=== PATIENT | female | born 1965 | race Caucasian/White ===

== ENCOUNTER 2020-06-07 20:54 | Inpatient (IN) | payer OTHER, SELFPAY ==
[2020-06-07 20:56] VITALS: BP 118/78; BP 98/53; PULSE 95; RESP 24; TEMP 38; O2SAT 93; O2SAT 95; BMI 43.9
--- NOTE | 2020-06-07 21:07 | PC.NURSE ---
WALKING O2 SAT. DOWN TO 86% TACHY TO 130S.
--- NOTE | 2020-06-07 21:08 | ECG_ITS ---
Test Reason : DYSPNEA Blood Pressure : / mmHG Vent. Rate : 081 BPM Atrial Rate : 081 BPM P-R Int : 122 ms QRS Dur : 088 ms QT Int : 354 ms P-R-T Axes : 039 029 047 degrees QTc Int : 411 ms Normal sinus rhythm Normal ECG No previous ECGs available Referred By: Generic ED Physician Electronically Signed By:YARA HERNANDEZ MD
--- NOTE | 2020-06-07 21:08 | XR_ITS ---
EXAMINATION: XR CHEST CLINICAL INFORMATION: Dyspnea. COMPARISON: None TECHNIQUE: Frontal view of the chest was obtained. FINDINGS: Lungs are well-expanded with mild increased bilateral parahilar interstitial markings but no confluent infiltrate. There is no pleural effusion or thickening. Heart size and pulmonary vascularity is normal. No gross bony abnormality seen. XR/XR chest 1V IMPRESSION: No acute process seen. Mild increased bilateral parahilar markings without confluent infiltrate.
[2020-06-07] MEDS: 0.9 % Sodium Chloride 1,000 ML 999 ML IV (21:44)
--- NOTE | 2020-06-07 21:46 | ED.SOB ---
HPI - SOB/Dyspnea General Chief Complaint: Dyspnea Stated Complaint: SOB,FEELS FEVERISH,COVID + Time Seen by Provider: 06/07/20 21:15 Source: patient Mode of arrival: EMS History of Present Illness HPI Narrative: This is a 54-year-old female with history of thyroid disease, asthma who presents after worsening respiratory symptoms and noted to have COVID-19 positive testing on 05/31/2020. Patient states she has been having chills, mild nausea, multiple episodes of nonbloody diarrhea, but denies any urinary pain/burning/frequency or otherwise abdominal discomfort. Patient states that her breathing becomes more painful on deep inspiration but denies chest pain/palpitations, or sore throat. In addition she is having headaches and body aches. Related Data Home Medications Medication Instructions Recorded Confirmed acetaminophen 500 mg PO Q6H PRN 06/07/20 06/07/20 albuterol sulfate 1 - 2 puff PO Q4-6H PRN 06/07/20 06/07/20 fluoxetine 20 mg PO DAILY 06/07/20 06/07/20 levothyroxine 50 mcg PO DAILY 06/07/20 06/07/20 omeprazole 20 mg PO DAILY 06/07/20 06/07/20 prednisone 20 mg PO DAILY 06/07/20 06/07/20 topiramate 50 mg PO BID 06/07/20 06/07/20 Allergies Allergy/AdvReac Type Severity Reaction Status Date / Time Penicillins [PENICILLINS] Allergy Unknown HIVES Verified 06/07/20 20:55 oseltamivir [From Tamiflu] Allergy Hives Verified 06/07/20 20:55 Review of Systems Review of Systems: Pertinent positives and negatives as stated in HPI 10 point review of systems is otherwise negative. PENDING SALE TO [facility] Past Medical History Source: nursing notes reviewed Medical History Anxiety Depression GERD (gastroesophageal reflux disease) Hypothyroid Migraine Social History Social History Advance Directives: No Advance Directives Information Provided: Yes Physical Exam Vital Signs: Vital Signs: Last Vital Signs Temp 100.4 F 06/07/20 20:56 Pulse 95 06/07/20 20:56 Resp 24 H 06/07/20 20:56 BP 98/53 L 06/07/20 20:56 Pulse Ox 95 06/07/20 20:56 Body Mass Index 43.9 VITAL SIGNS: Reviewed. GENERAL: Well developed, well nourished, in no acute distress. HEAD: Normocephalic/atraumatic, EYES: PERRLA, EOMI EARS: Ext canals without abnormality, TMs non-bulging and non-erythematous NOSE: Nares patent bilateral OROPHARYNX: no oral lesions noted, posterior pharynx clear NECK: Supple, no adenopathy LUNGS: Normal breath sounds, tachypnea. No adventitious sounds or accessory muscle use. SpO2<95> when patient was ambulated oxygenation dropped to less than 90%. CARDIOVASCULAR: Regular rate and rhythm without noted murmurs, no JVD or lower extremity edema. ABDOMEN: Obese, Soft, non-tender, non-distended with bowel sounds. SKIN: Inspection of the skin reveals no rashes NEUROLOGIC: Alert and oriented x 4. Strength and sensation to light touch were grossly intact x 4. Course Course Course Narrative: This is a 54-year-old female with history and clinical presentation most consistent with acute respiratory failure with hypoxia suspected secondary to COVID-19. Therefore, this is a SIRS response but will initially obtain lactic acid as well as blood cultures., will administer sepsis level IV fluids as patient likely has a component of dehydration. Doubt CHF or asthma exacerbation at this time. On review of all investigations lab work and imaging most consistent with acute respiratory failure with hypoxia requiring oxygen supplementation and SIRS response secondary to viral infection (COVID-19). This case was discussed with the inpatient hospitalist who is agreeable for admission. MDM - SOB/Dyspnea Lab Data Result diagrams: 06/07/20 21:33 06/07/20 21:33 Labs: Lab Results 06/07/20 06/07/20 06/07/20 Range/Units 21:33 21:33 21:33 WBC 10.9 H (4.8-10.8) X10*3/uL RBC 5.20 (4.20-5.50) X10*6/uL Hgb 13.9 (12.0-16.0) g/dl Hct 42.5 (37-47) % MCV 81.7 (80-98) fL MCH 26.7 L (27.0-33.0) pg MCHC 32.7 (31.0-35.0) g/dl RDW 14.0 (11.0-16.0) % Plt Count 327 (160-400) X10*3/uL MPV 11.2 (9.4-12.3) fL Immature Gran % (Auto) 0.4 (0.0-0.4) % Neut % (Auto) 66.5 (45-73) % Lymph % (Auto) 22.1 (20-40) % [place] % (Auto) 10.5 (2-11) % Eos % (Auto) 0.3 (0-4) % Baso % (Auto) 0.2 (0-2) % Lymph # (Auto) 2.4 (1.2-4.9) X10*3/uL [place] # (Auto) 1.1 (0.1-1.2) X10*3/uL Eos # (Auto) 0.0 (0.0-0.4) X10*3/uL Baso # (Auto) 0.0 (0.0-0.2) X10*3/uL Abs Immat Gran (auto) 0.04 H (0.00-0.03) X10*3/uL Absolute Neuts (auto) 7.2 (2.0-8.3) X10*3/uL Absolute Nucleated RBC 0.000 (0.0-0.012) X10*3/uL Nucleated RBC % (auto) 0.0 (0.0-0.2) /100WBC Hold Blue Top SEE NOTE Sodium (135-145) mmol/L Potassium (3.3-5.1) mmol/l Chloride (96-108) mmol/L Carbon Dioxide (22-29) mmol/L Anion Gap (12-20) BUN (9-16) mg/dL Creatinine (0.5-1.4) mg/dL Estim Creat Clear Calc Estimated GFR Random Glucose (60-115) mg/dL Lactic Acid 1.7 (0.5-2.0) mmol/L Calcium (8.4-10.2) mg/dL Lactate Dehydrogenase (122-220) U/L Troponin I High Sens (<3.5-17.0) ng/L C-Reactive Protein (< or = 0.50) mg/dL B-Natriuretic Peptide (<100) pg/mL Procalcitonin ng/mL TSH (0.32-4.0) uIU/mL 06/07/20 06/07/20 06/07/20 Range/Units 21:33 21:33 21:33 WBC (4.8-10.8) X10*3/uL RBC (4.20-5.50) X10*6/uL Hgb (12.0-16.0) g/dl Hct (37-47) % MCV (80-98) fL MCH (27.0-33.0) pg MCHC (31.0-35.0) g/dl RDW (11.0-16.0) % Plt Count (160-400) X10*3/uL MPV (9.4-12.3) fL Immature Gran % (Auto) (0.0-0.4) % Neut % (Auto) (45-73) % Lymph % (Auto) (20-40) % [place] % (Auto) (2-11) % Eos % (Auto) (0-4) % Baso % (Auto) (0-2) % Lymph # (Auto) (1.2-4.9) X10*3/uL [place] # (Auto) (0.1-1.2) X10*3/uL Eos # (Auto) (0.0-0.4) X10*3/uL Baso # (Auto) (0.0-0.2) X10*3/uL Abs Immat Gran (auto) (0.00-0.03) X10*3/uL Absolute Neuts (auto) (2.0-8.3) X10*3/uL Absolute Nucleated RBC (0.0-0.012) X10*3/uL Nucleated RBC % (auto) (0.0-0.2) /100WBC Hold Blue Top Sodium 139 (135-145) mmol/L Potassium 3.5 (3.3-5.1) mmol/l Chloride 105 (96-108) mmol/L Carbon Dioxide 21 L (22-29) mmol/L Anion Gap 17 (12-20) BUN 15 (9-16) mg/dL Creatinine 1.10 (0.5-1.4) mg/dL Estim Creat Clear Calc 68.7 Estimated GFR 52 Random Glucose 114 (60-115) mg/dL Lactic Acid (0.5-2.0) mmol/L Calcium 8.1 L (8.4-10.2) mg/dL Lactate Dehydrogenase 268 H (122-220) U/L Troponin I High Sens 3.9 (<3.5-17.0) ng/L C-Reactive Protein 11.22 H (< or = 0.50) mg/dL B-Natriuretic Peptide 11 (<100) pg/mL Procalcitonin 0.05 ng/mL TSH 2.83 (0.32-4.0) uIU/mL Discharge Plan Discharge Clinical Impression: Acute hypoxemic respiratory failure due to COVID-19, Hypoxia, Dehydration Patient Disposition: Admitted As Inpatient
[2020-06-07 22:04] LABS: MANUAL DIFF FLAG NO
[2020-06-07 22:06] LABS: Basophils Percent Auto 0.2 % (0-2); Eosinophils Percent Auto 0.3 % (0-4); Hematocrit 42.5 % (37-47); Hemoglobin 13.9 g/dl (12.0-16.0); Imm Gran Abs Auto 0.04 X10*3/uL (0.00-0.03); Imm Gran Pct Auto 0.4 % (0.0-0.4); Lymphocytes Absolute Auto 2.4 X10*3/uL (1.2-4.9); Lymphocytes Percent Auto 22.1 % (20-40); Mean Corpuscular HGB Conc 32.7 g/dl (31.0-35.0); Mean Corpuscular Hemoglobin 26.7 pg (27.0-33.0); Mean Corpuscular Volume 81.7 fL (80-98); Mean Platelet Volume 11.2 fL (9.4-12.3); Monocytes Absolute Auto 1.1 X10*3/uL (0.1-1.2); Monocytes Percent Auto 10.5 % (2-11); Neutrophils Absolute Auto 7.2 X10*3/uL (2.0-8.3); Neutrophils Percent Auto 66.5 % (45-73); Platelet Count 327 X10*3/uL (160-400); White Blood Count 10.9 X10*3/uL (4.8-10.8)
[2020-06-07 22:32] LABS: Lactic Acid 1.7 mmol/L (0.5-2.0)
[2020-06-07 22:35] LABS: Anion Gap 17 (12-20); Blood Urea Nitrogen 15 mg/dL (9-16); Calcium 8.1 mg/dL (8.4-10.2); Carbon Dioxide 21 mmol/L (22-29); Chloride 105 mmol/L (96-108); Creatinine Clr Calc Pharmacy 68.7; Estimated Glomerular Filt Rate 52; Glucose Random 114 mg/dL (60-115); Potassium 3.5 mmol/l (3.3-5.1); Sodium 139 mmol/L (135-145)
[2020-06-07 22:43] LABS: B Type Natriuretic Peptide 11 pg/mL (<100); Troponin-I High Sensitivity 3.9 ng/L (<3.5-17.0)
[2020-06-07 23:14] LABS: C Reactive Protein 11.22 mg/dL (< or = 0.50); Lactate Dehydrogenase 268 U/L (122-220)
[2020-06-07 23:35] LABS: Thyroid Stimulating Hormone 2.83 uIU/mL (0.32-4.0)
[2020-06-07 23:38] LABS: Procalcitonin 0.05 ng/mL
[2020-06-08] VITALS (9 sets, daily range): BP systolic 88–140; BP diastolic 43–70; PULSE 56–70; RESP 12–23; TEMP 36.8–37.5; O2SAT 93–97
--- NOTE | 2020-06-08 01:31 | PC.NURSE ---
PATIENT UP TO BATHROOM TO PROVIDE URINE SPECIMEN.
[2020-06-08 02:19] LABS: Influenza A PCR NEGATIVE (Negative); Influenza B PCR NEGATIVE (Negative); Resp Syncy Virus RNA Qual PCR NEGATIVE (Negative)
[2020-06-08 02:39] LABS: SARS COV2 PCR INHOUSE POSITIVE (Negative)
--- NOTE | 2020-06-08 03:37 | P.HPHOSP_ITS ---
History of Present Illness Date of Service: 06/08/20 Chief Complaint: Dyspnea, fatigue, sore throat 54 year old woman with history of asthma, hypopthyroidism presented with ongoing symptoms related to COVID. She tested positive in 05/31 after having household member who also had positive test. Therafter she describes intermittent fevers/chills, fatigue, sore throat, cough, and burning chest pain. She also has had diarrhea and nausea. Though she has asthma, it is mild/intermittent as she has not had any recent hospitalizations for exacerbations.. Review of Systems Constitutional: Constitutional: Reports chills and Reports lethargy Eyes: Comments: No vision changes ENT: Comments: Some sore throat. Cardiovascular: Comments: Chest discomfort with coughing. Respiratory: Comments: Dyspnea Gastrointestinal: Comments: Diarrhea, some abd discomfort Musculoskeletal: Musculoskeletal: Reports no additional musculoskeletal complaints Integumentary/Breasts: Comments: No rashes Neurologic: Comments: No confusion Psychiatric: Comments: No anxiety or agitation Hematologic/Lymphatic: Comments: No rashes PMFSH Medical History Anxiety Depression GERD (gastroesophageal reflux disease) Hypothyroid Migraine Family history: reviewed and not pertinent Social History Alcohol intake: never Smoking Status: Never smoker Smoked in Last 30 Days: No Use of substances other than those prescribed or required for medical reasons: No Advance Directives: No Advance Directives Information Provided: Yes Meds Allergies Allergy/AdvReac Type Severity Reaction Status Date / Time Penicillins [PENICILLINS] Allergy Unknown HIVES Verified 06/07/20 20:55 oseltamivir [From Tamiflu] Allergy Hives Verified 06/07/20 20:55 Home Medications Medication Instructions Recorded Confirmed Type acetaminophen 500 mg PO Q6H PRN 06/07/20 06/07/20 History albuterol sulfate 1 - 2 puff PO Q4-6H PRN 06/07/20 06/07/20 History fluoxetine 20 mg PO DAILY 06/07/20 06/07/20 History levothyroxine 50 mcg PO DAILY 06/07/20 06/07/20 History omeprazole 20 mg PO DAILY 06/07/20 06/07/20 History prednisone 20 mg PO DAILY 01/16/21 01/16/21 History topiramate 50 mg PO BID 06/07/20 06/07/20 History Physical Exam Vital Signs and Narrative: Vital Signs: Last Vital Signs Temp 98.8 F 06/08/20 01:51 Pulse 69 06/08/20 01:51 Resp 12 06/08/20 01:51 BP 99/53 L 06/08/20 01:51 Pulse Ox 93 06/08/20 01:51 Body Mass Index 43.9 Const: Other: No distress. Seems a bit fatigues, though General: cooperative and comfortable Orientation/consciousness: patient oriented x3 HENMT: Head: Yes normal to inspection General nose exam: Normal external nose present Mouth: Normal oral and palatal mucosa present Eyes: Other: No scleral icterus or conjunctival injections General: appear ance normal, both eyes and all related structures Resp: Other: No insp crackles heard. Scant end exp wheezing heard in lower lung ba. Effort & Inspection: normal respiratory effort Cardio: Rate: regular rate Rhythm: regular rhythm Heart sounds: S1 normal heart sound present and S2 normal heart sound present GI: Other: Bowel sounds present, mildly tender to palpation, no guarding or masses Inspection: Yes normal to inspection Skin: General skin exam: no rashes or lesions noted Neuro: General: patient oriented x3 Extrem: Other: No leg edema seen Psych: Other: Not anxious or agitated Results Labs CBC and Chem 7: 06/07/20 21:33 06/07/20 21:33 Labs: Laboratory Results - last 24 hr 06/07/20 06/07/20 06/07/20 21:33 21:33 21:33 MCV 81.7 MCH 26.7 L MCHC 32.7 RDW 14.0 Plt Count 327 MPV 11.2 Immature Gran % (Auto) 0.4 Neut % (Auto) 66.5 Lymph % (Auto) 22.1 [place] % (Auto) 10.5 Eos % (Auto) 0.3 Baso % (Auto) 0.2 Lymph # (Auto) 2.4 [place] # (Auto) 1.1 Eos # (Auto) 0.0 Baso # (Auto) 0.0 Abs Immat Gran (auto) 0.04 H Absolute Neuts (auto) 7.2 Absolute Nucleated RBC 0.000 Nucleated RBC % (auto) 0.0 Hold Blue Top SEE NOTE Anion Gap Estim Creat Clear Calc Estimated GFR Random Glucose Lactic Acid 1.7 Calcium Lactate Dehydrogenase Troponin I High Sens C-Reactive Protein B-Natriuretic Peptide Procalcitonin TSH Coronavirus (PCR) Influenza Type A (PCR) Influenza Type B (PCR) RSV RNA Qual (PCR) 06/07/20 06/07/20 06/07/20 21:33 21:33 21:33 MCV MCH MCHC RDW Plt Count MPV Immature Gran % (Auto) Neut % (Auto) Lymph % (Auto) [place] % (Auto) Eos % (Auto) Baso % (Auto) Lymph # (Auto) [place] # (Auto) Eos # (Auto) Baso # (Auto) Abs Immat Gran (auto) Absolute Neuts (auto) Absolute Nucleated RBC Nucleated RBC % (auto) Hold Blue Top Anion Gap 17 Estim Creat Clear Calc 68.7 Estimated GFR 52 Random Glucose 114 Lactic Acid Calcium 8.1 L Lactate Dehydrogenase 268 H Troponin I High Sens 3.9 C-Reactive Protein 11.22 H B-Natriuretic Peptide 11 Procalcitonin 0.05 TSH 2.83 Coronavirus (PCR) Influenza Type A (PCR) Influenza Type B (PCR) RSV RNA Qual (PCR) 06/08/20 01:24 MCV MCH MCHC RDW Plt Count MPV Immature Gran % (Auto) Neut % (Auto) Lymph % (Auto) [place] % (Auto) Eos % (Auto) Baso % (Auto) Lymph # (Auto) [place] # (Auto) Eos # (Auto) Baso # (Auto) Abs Immat Gran (auto) Absolute Neuts (auto) Absolute Nucleated RBC Nucleated RBC % (auto) Hold Blue Top Anion Gap Estim Creat Clear Calc Estimated GFR Random Glucose Lactic Acid Calcium Lactate Dehydrogenase Troponin I High Sens C-Reactive Protein B-Natriuretic Peptide Procalcitonin TSH Coronavirus (PCR) POSITIVE A Influenza Type A (PCR) NEGATIVE Influenza Type B (PCR) NEGATIVE RSV RNA Qual (PCR) NEGATIVE Imaging Radiologist's Impressions: Impressions Chest X-Ray 06/07/20 21:08 IMPRESSION: No acute process seen. Mild increased bilateral parahilar markings without confluent infiltrate. Assessment and Plan (1) Acute hypoxemic respiratory failure due to COVID-19: Status: Acute 54 year old woman presnted with ongoing COVID symptoms after testing positive on 05/31. Noted to be mildly hypoxemic and symptomatic on room air. COVID Given hypoxia will treat with PO Dexamethasone 6mg daily. ID consult for Remd esivir. Supportive care, Tylenol prn fever. Asthma No exacerbation. Albuterol MDI prn ordered. Hypothyroidism Levothyrxine ordered. Depression Fluoxetine ordered. dvt proph SC Lovenox Code status Full.
[2020-06-08] MEDS: 0.9 % Sodium Chloride 1,000 ML 100 ML IVCONT (04:32)
[2020-06-08] MEDS: Acetaminophen 325 MG TABLET 650 MG PO (04:34)
[2020-06-08] MEDS: Enoxaparin Sodium 40 MG/0.4 ML SYRINGE SUBCUT (04:36)
[2020-06-08 05:52] LABS: Appearance Urine CLEAR; Color Urine YELLOW; Glucose Urine UA NEG (NEG); Leukocyte Esterase Urine NEG (NEG); Nitrite Urine NEG (NEG); Specific Gravity - Urine 1.025 (1.005-1.025); Urine Blood NEG (NEG); Urine Ketones NEG (NEG); Urine Protein NEG (NEG-TRACE)
--- NOTE | 2020-06-08 05:54 | PC.NURSE ---
CONTINUES TO SLEEP IN THE PRONE POSITION. MAINTAINING O2 SATS WITH NON-REBREATHER AND HI-FLOW. NO APPARENT DISTRESS. BREATHING EVEN, NON-LABORED.
[2020-06-08] MEDS: Omeprazole 20 MG CAPSULE.DR PO (08:24)
[2020-06-08] MEDS: Topiramate 25 MG TABLET 50 MG PO ×2 (08:24→21:58)
[2020-06-08] MEDS: FLUoxetine HCl 20 MG CAPSULE PO (08:24)
[2020-06-08] MEDS: dexAMETHasone 6 MG TABLET PO (08:24)
[2020-06-08] MEDS: 0.9 % Sodium Chloride Flush 3 ML SYRINGE IVFLUSH ×2 (08:24→16:39)
[2020-06-08] MEDS: Levothyroxine Sodium 50 MCG TABLET PO (08:24)
[2020-06-08 09:02] LABS: Estimated Average Glucose 117 mg/dL; Hemoglobin A1c % 5.7 %
[2020-06-08 09:07] LABS: Alanine Aminotransferase 19 U/L (0-31); Albumin Level 3.7 g/dL (3.5-5.0); Alkaline Phosphatase 49 U/L (39-117); Aspartate Amino Transferase 17 U/L (5-31); Bilirubin Direct < 0.2 mg/dL (0.0-0.5); Bilirubin Total 0.3 mg/dL (0.0-1.0); Total Protein 6.5 g/dL (6.5-8.0)
--- NOTE | 2020-06-08 10:42 | PC.NURSE ---
patient ambulatory to/from bathroom w/ slow/steady gait. increased work of breathing and SOB w/ ambulation, improved w/ rest. patient stated that she had bright red blood in stool just now, also c/o heart burn.
--- NOTE | 2020-06-08 11:29 | PC.NURSE ---
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
[2020-06-08 13:19] LABS: Hematocrit 39.6 % (37-47); Hemoglobin 12.7 g/dl (12.0-16.0)
--- NOTE | 2020-06-08 14:12 | PC.NURSE ---
patient a&ox3, pt ambulating to bathroom independently, pt states she has had some diarrhea this afternoon with some blood- pt states she does not have pain from this, patient was notified that there is a gi consult put in for her, alarm security or surveillance monitor nsr 60s-70s, vitals otherwise stable, will continue to monitor.
--- NOTE | 2020-06-08 15:55 | PC.NURSE ---
patient remains alert and oriented, ambulates to bathroom independently, is galindo upon returning, patient currently watching tv, will continue to monitor.
--- NOTE | 2020-06-08 16:22 | P.EN_ITS ---
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 Seen and examined again: Says symptoms are slowly improving Denies any chest pain, shortness of breath improving Physio: Cvs: rrr, [id number] , no murmur res: clear to auscultation ,no rhonchii or wheezing abd: no rebound or guarding ,nt , bs present. ext pulses present , no cyanosis neuro: axo3 , nonfocal. Assessment and plan: Coordinated in H H&P note Will DC IV fluids Id evaluation ? Patient complain of some diarrhea/blood in the stool as per ED staff H&H repeated seems stable Type and cross GI evaluation.
[2020-06-08] MEDS: Pantoprazole Sodium 40 MG/10 ML VIAL IVPUSH (16:39)
--- NOTE | 2020-06-08 18:11 | P.EN_ITS ---
Event Note Date of Service: 06/08/20 Event Note: GI Consult-Full note dictated Hx via patient, EMR, and RN. Imp: 54 yo female with COVID who has been on an outpatient Zpak since early in the week and developed some soft/loose stool with some rectal burning and BRB mixed with brown stool. The bleeding has only been twice today. She denies melena. She describes a negative colonoscopy at [facility] in 2019. She denies any chronic GI complaints nor significant family history of GI disease. Her Hgb has remained stable. Her abdominal exam is presently benign. Her po intake has been good. Diff dx: Antibiotic-associated diarrhea, COVID-associated diarrhea. Rec: Check stool specimens for Cdiff, as has already been ordered. Follow Hgb. As long as things remain stable I don't think any intervention such as a colonoscopy is required. Continue her outpatient oral PPI. Continue diet as tolerated. I think it would be OK to use prohylatic Lovenox/SQ Heparin in light of her illness, but would stop that if she develops significant bleeding. Please call me if I can be of any further assistance. D/W patient in detail. Thanks
--- NOTE | 2020-06-08 20:22 | PC.NURSE ---
report called to floor
--- NOTE | 2020-06-08 20:25 | CONS_ITS ---
DATE OF SERVICE: 06/08/2020 REFERRING PHYSICIAN: Dr. Rayo REASON FOR CONSULTATION: Diarrhea and rectal bleeding. HISTORY OF PRESENT ILLNESS: This has been obtained from the patient, the medical record, and the nurse. The patient is a 54-year-old female admitted with the diagnosis of COVID infection. She describes a diagnosis of COVID almost 1 week ago. She was started on outpatient Z-Ghulam, prednisone, and other symptomatic treatment. She describes the onset of some loose and soft stools after starting Z-Ghulam. Prior to using Z-Ghulam, she denies any particular GI symptoms. She describes a negative colonoscopy at [facility] in 2019. She denies any previous chronic GI complaints. There is no family history of colorectal cancer nor inflammatory bowel disease. Her loose stool was not particularly problematic when she came to the ER and has been admitted for further management of the COVID infection. Since admission here, she has had 2 episodes of looser brown stool with some bright red blood mixed with it. She describes some rectal burning. There is no melena. She did have some abdominal cramping, which has resolved. She did have some transient nausea and vomiting, but this also has resolved. She has not noticed any hematemesis nor coffee-grounds emesis. Stool for C difficile has already been ordered. Her hemoglobin has been remaining stable, and she has not required any transfusions. She does have history of reflux for which she uses outpatient omeprazole with good relief. MEDICATIONS: At home include acetaminophen, albuterol inhaler p.r.n., fluoxetine, levothyroxine, omeprazole, prednisone, and topiramate. Her current medications in the hospital include acetaminophen, albuterol inhaler, Decadron, fluoxetine, levothyroxine, IV pantoprazole, and topiramate. PAST MEDICAL HISTORY: Anxiety. Depression. Hypothyroidism. Migraines. She denies history of [place], diabetes, stroke, nor kidney disease. She does describe history of asthma. She has had breast reduction surgery. She denies any other surgeries. 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 She is . She does not smoke, use any significant amounts of alcohol. FAMILY HISTORY: Noncontributory. REVIEW OF SYSTEMS: CONSTITUTIONAL: Since having developed COVID, she has been having some fatigue. SKIN: No rash. No pruritus. CARDIAC: No chest pain. PULMONARY: No coughing or hemoptysis. GI: As above. URINARY: No dysuria or any hematuria. PHYSICAL EXAMINATION: GENERAL: The patient is a pleasant, alert, comfortable-appearing female. VITAL SIGNS: Appears stable. Oxygen saturations 98% on room air. SKIN: Warm and dry. Anicteric sclerae. ABDOMEN: Soft, nondistended, and nontender. There is no palpable mass, rebound, or guarding. LABORATORY DATA: Hemoglobin was 13.9 on admission, 12.7 today. Hemoglobin last January was 12.9. Normal MCV, platelets 227,000. White blood cell count 10.9. Normal electrolytes. BUN 15, creatinine 1.1. LFTs normal. C-reactive protein 11.2. Stool for C difficile has been ordered but has not yet been collected. IMPRESSION: Given the patient's clinical history, I suspect the change in her bowel habits and loose stool is a result of the recent initiation of outpatient antibiotics. COVID infection has been associated with diarrhea as well. I do not think this reflects any other underlying pathology such as inflammatory bowel disease. At this point, she appears quite stable, and the bleeding does not appear to have been clinically significant. Shehas been probably bleeding from a perianal source such as a hemorrhoid or fissure given the associated rectal burning and reported negative colonoscopy in 2019. At this point, I would continue observation. I would agree with checking stool for C difficile as already ordered. I will continue diet as tolerated. I do not think she requires any type of endoscopic intervention at this time. I would continue outpatient oral PPI therapy. I do think it would be okay to use prophylactic Lovenox or subcu heparin in light of her underlying illness, but would certainly stop that if she develops signs of significant active bleeding. At this point, I will be available if need be. Please call me if I could be of any further assistance during her hospitalization. Thank you for this consultation. MD JOHN Oreilly/EDDIE / [phone] MTDD
--- NOTE | 2020-06-08 20:27 | PC.NURSE ---
unable to document vitals as for some reason the spot to document is not on the screen and it will not allow this nurse to add them. patients vitals for 6pm were 100/58 bp, hr 60, rr 22, 95% on room air. 830 pm vitals were bp 102/56, hr 63, rr 22, 95% on room air.
[2020-06-09] VITALS (8 sets, daily range): BP systolic 95–136; BP diastolic 35–73; PULSE 49–79; RESP 16–27; TEMP 36.5–36.8; O2SAT 94–98; BMI 43.9
[2020-06-09] MEDS: ondansetron HCL 4 MG/2 ML VIAL IVPUSH (02:35)
[2020-06-09] MEDS: Pantoprazole Sodium 40 MG/10 ML VIAL IVPUSH ×2 (05:04→17:51)
[2020-06-09 06:59] LABS: Anion Gap 12 (12-20); Blood Urea Nitrogen 12 mg/dL (9-16); Calcium 8.2 mg/dL (8.4-10.2); Carbon Dioxide 24 mmol/L (22-29); Chloride 109 mmol/L (96-108); Creatinine Clr Calc Pharmacy 94.4; Estimated Glomerular Filt Rate > 60; Glucose Random 129 mg/dL (60-115); Potassium 4.1 mmol/l (3.3-5.1); Sodium 141 mmol/L (135-145)
[2020-06-09 07:03] LABS: Basophils Percent Auto 0.1 % (0-2); Hematocrit 38.7 % (37-47); Hemoglobin 12.4 g/dl (12.0-16.0); Imm Gran Abs Auto 0.04 X10*3/uL (0.00-0.03); Imm Gran Pct Auto 0.5 % (0.0-0.4); Lymphocytes Absolute Auto 1.8 X10*3/uL (1.2-4.9); Lymphocytes Percent Auto 23.4 % (20-40); MANUAL DIFF FLAG SCAN; Mean Corpuscular Hemoglobin 26.3 pg (27.0-33.0); Mean Platelet Volume 11.3 fL (9.4-12.3); Monocytes Absolute Auto 0.7 X10*3/uL (0.1-1.2); Monocytes Percent Auto 8.7 % (2-11); Neutrophils Absolute Auto 5.1 X10*3/uL (2.0-8.3); Neutrophils Percent Auto 67.3 % (45-73); Platelet Count 323 X10*3/uL (160-400); Red Blood Count 4.72 X10*6/uL (4.20-5.50); Red Cell Distribution Width 14.2 % (11.0-16.0); SCAN SMEAR FLAG 1; White Blood Count 7.6 X10*3/uL (4.8-10.8)
[2020-06-09 08:28] LABS: SLIDE REVIEW VERIFIED
[2020-06-09] MEDS: Enoxaparin Sodium 40 MG/0.4 ML SYRINGE SUBCUT (10:28)
[2020-06-09] MEDS: 0.9 % Sodium Chloride Flush 3 ML SYRINGE IVFLUSH ×3 (10:28→20:02)
[2020-06-09] MEDS: Topiramate 25 MG TABLET 50 MG PO ×2 (10:29→20:02)
[2020-06-09] MEDS: Levothyroxine Sodium 50 MCG TABLET PO (10:29)
[2020-06-09] MEDS: FLUoxetine HCl 20 MG CAPSULE PO (10:29)
[2020-06-09] MEDS: dexAMETHasone 6 MG TABLET PO (10:29)
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
--- NOTE | 2020-06-09 15:07 | MHC.CM.PN ---
Met with pt to discuss d/c planning: pt resides with her parents, dtr and grandchild: independent with all care needs: drives and works remotely from home at this time Pt verbalized anxiety with return to home: all members of her household are positive - explained quarantine process and being that her entire household will be following CDC protocol for 10 days that she will be able to return to home. Pt also verbalized concern with transportation - will revisit closer to d/c. Family should be able to transport since they will remain in a vehicle masked and pt will be masked as well (also, family is +). CM to follow for any changes
[2020-06-10 03:11] VITALS: BP 111/72; PULSE 55; RESP 20; TEMP 36.5; O2SAT 92
[2020-06-10] MEDS: Pantoprazole Sodium 40 MG/10 ML VIAL IVPUSH ×2 (06:06→16:13)
[2020-06-10 07:37] VITALS: BP 129/46; PULSE 52; RESP 15; TEMP 36.4; O2SAT 94
[2020-06-10] MEDS: Enoxaparin Sodium 40 MG/0.4 ML SYRINGE SUBCUT (08:42)
[2020-06-10] MEDS: Topiramate 25 MG TABLET 50 MG PO ×2 (08:42→21:59)
[2020-06-10] MEDS: dexAMETHasone 6 MG TABLET PO (08:43)
[2020-06-10] MEDS: 0.9 % Sodium Chloride Flush 3 ML SYRINGE IVFLUSH ×2 (08:43→16:13)
[2020-06-10] MEDS: Levothyroxine Sodium 50 MCG TABLET PO (08:43)
[2020-06-10] MEDS: FLUoxetine HCl 20 MG CAPSULE PO (08:43)
[2020-06-10 11:27] VITALS: BP 107/53; PULSE 62; RESP 19; TEMP 36.7; O2SAT 94
--- NOTE | 2020-06-10 12:48 | HO.PM.IMPN ---
Subjective Subjective Date of Service: 06/10/20 Interval History: covid infecion Review of Systems Patient says shortness of breath improving, still has some cough, denies any chest pain or abdominal pain Physical Exam Vital Signs: Vital Signs: Last Vital Signs Temp 98.0 F 06/10/20 11:27 Pulse 62 06/10/20 11:27 Resp 19 06/10/20 11:27 BP 107/53 L 06/10/20 11:27 Pulse Ox 94 06/10/20 11:27 Body Mass Index 43.9 Physical exam: Cvs: rrr, [id number] , no murmur res: Fair air entry, slightly some rhonchi abd: no rebound or guarding ,nt, bs present. ext pulses present , no cyanosis neuro: axo3 , nonfocal. Objective Data Current Medications Generic Name Dose Route Start Last Admin Trade Name Freq PRN Reason Stop Dose Admin Acetaminophen 650 mg 06/08/20 03:35 06/08/20 04:34 Acetaminophen 325 Mg Tablet PO 650 mg Q6H PRN Administration Mild pain, fever Albuterol Sulfate 2 puff 06/08/20 03:35 Albuterol Sulfate 90 Mcg 8 Gm Inhaler INHALE QID PRN Shortness of Breath/Wheezing Dexamethasone 6 mg 06/08/20 09:00 06/10/20 08:43 Dexamethasone 6 Mg Tablet PO 6 mg DAILY YUE Administration Enoxaparin Sodium 40 mg 06/09/20 08:00 06/10/20 08:42 Enoxaparin Sodium 40 Mg/0.4 Ml Syringe SUBCUT 40 mg Q24H YUE Administration Fluoxetine HCl 20 mg 06/08/20 09:00 06/10/20 08:43 Fluoxetine Hcl 20 Mg Capsule PO 20 mg DAILY YUE Administration Levothyroxine Sodium 50 mcg 06/08/20 09:00 06/10/20 08:43 Levothyroxine Sodium 50 Mcg Tablet PO 50 mcg DAILY YUE Administration Ondansetron HCl 4 mg 06/09/20 02:27 06/09/20 02:35 Ondansetron Hcl 4 Mg/2 Ml Vial IVPUSH 4 mg Q6H PRN Administration Nausea and Vomiting Pantoprazole Sodium 40 mg 06/08/20 16:30 06/10/20 06:06 Pantoprazole Sodium 40 Mg/10 Ml Vial IVPUSH 40 mg BID@0630,1630 YUE Administration Sodium Chloride 3 ml 06/08/20 08:00 06/10/20 08:43 0.9 % Sodium Chloride Flush 3 Ml Syringe IVFLUSH 3 ml QSHIFT YUE Administration Topiramate 50 mg 06/08/20 09:00 06/10/20 08:42 Topiramate 25 Mg Tablet PO 50 mg BID YUE Administration Labs CBC & Chem 7: 06/09/20 06:15 06/09/20 06:15 Microbiology Microbiology Results: Microbiology 06/07/20 21:33 Blood - Venous Blood Culture - Preliminary No growth after 48 hours. 06/07/20 21:40 Blood - Venous Blood Culture - Preliminary No growth after 48 hours. Assessment and Plan (1) Acute hypoxemic respiratory failure due to COVID-19: Status: Acute (2) Hypoxia: Status: Acute (3) Dehydration: Status: Acute Assessment and Plan: 54 year old woman presnted with ongoing COVID symptoms after testing positive on 05/31. Noted to be mildly hypoxemic and symptomatic on room air. 1.COVID:hypoxia seems to be improving continue PO Dexamethasone 6mg daily. due to late presentation -no remdesvir Supportive care, Tylenol prn fever. 2.Asthma No exacerbation. Albuterol MDI prn ordered. 3.Hypothyroidism Levothyrxine ordered. 4.Depression Fluoxetine ordered.
[2020-06-10 16:00] VITALS: BP 107/66; PULSE 60; TEMP 36.5; O2SAT 94
[2020-06-10] MEDS: Acetaminophen 325 MG TABLET 650 MG PO (16:23)
[2020-06-10] MEDS: Albuterol Sulfate 90 MCG 8 GM INHALER 2 PUFF INHALE (16:25)
[2020-06-10 20:00] VITALS: BP 116/72; PULSE 59; RESP 18; TEMP 36.9; O2SAT 95
[2020-06-11] VITALS: BP 112/54; PULSE 52; RESP 22; TEMP 36.4; O2SAT 93
[2020-06-11] MEDS: 0.9 % Sodium Chloride Flush 3 ML SYRINGE IVFLUSH ×2 (00:19→09:43)
[2020-06-11 03:55] VITALS: BP 105/51; PULSE 48; RESP 15; TEMP 36.6
[2020-06-11] MEDS: Pantoprazole Sodium 40 MG/10 ML VIAL IVPUSH (06:24)
[2020-06-11 07:46] VITALS: BP 105/58; PULSE 53; RESP 16; TEMP 36.9; O2SAT 95
[2020-06-11] MEDS: Topiramate 25 MG TABLET 50 MG PO (10:19)
[2020-06-11] MEDS: dexAMETHasone 6 MG TABLET PO (10:20)
[2020-06-11] MEDS: FLUoxetine HCl 20 MG CAPSULE PO (10:20)
[2020-06-11] MEDS: Levothyroxine Sodium 50 MCG TABLET PO (10:20)
[2020-06-11] MEDS: Enoxaparin Sodium 40 MG/0.4 ML SYRINGE SUBCUT (10:20)
[2020-06-11 11:34] VITALS: BP 106/64; PULSE 64; RESP 16; TEMP 36.7; O2SAT 93
--- NOTE | 2020-06-11 12:29 | P.DS_ITS ---
DS: Providers Provider Date of Service: 06/11/20 Date of admission: 06/08/20 03:52 Primary care physician: Delmy Warner MD Consults: 06/08/20 03:35 Consult to Infectious Diseases Routine Consulting Provider: Almaz Curiel Reason for consultation: COVID, pls eval for Remdesivir Has provider been notified: No 06/08/20 11:43 Consult to Gastroenterology Routine Consulting Provider: Darrell Cano Reason for consultation: ? GI bleed Has provider been notified: No DS: Diagnosis Discharge Diagnosis (1) Acute hypoxemic respiratory failure due to COVID-19: Status: Acute (2) Hypoxia: Status: Acute (3) Dehydration: Status: Acute DS: Medications Discharge Medications Home Medications: Home Medications Medication Instructions Recorded Confirmed acetaminophen 500 mg PO Q6H PRN 06/07/20 06/07/20 albuterol sulfate 1 - 2 puff PO Q4-6H PRN 06/07/20 06/07/20 fluoxetine 20 mg PO DAILY 06/07/20 06/07/20 levothyroxine 50 mcg PO DAILY 06/07/20 06/07/20 omeprazole 20 mg PO DAILY 06/07/20 06/07/20 prednisone 20 mg PO DAILY 06/07/20 06/07/20 topiramate 50 mg PO BID 06/07/20 06/07/20 Previous Rx's Medication Instructions Recorded dexamethasone 6 mg PO DAILY #7 tab 06/11/20 guaifenesin 200 mg PO Q4H PRN #250 ml 06/11/20 DS: Summary Hospital Course Hospital Course: 54 year old woman with history of asthma, hypopthyroidism presented with ongoing symptoms related to COVID. She tested positive in 05/31 after having household member who also had positive test. Therafter she describes intermittent fevers/chills, fatigue, sore throat, cough, and burning chest pain. She also has had diarrhea and nausea. Though she has asthma, it is mild/intermittent as she has not had any recent hospitalizations for exacerbations. Hospital Course: Patient came with COVID pneumonia and acute hypoxemic respiratory failure : Started on dexamethasone and oxygen support- seems improved significantly Seen by infectious disease-patient will go home with dexamethasone and complete the course. Patient initially also has some diarrhea-probably related to COVID. Resolved spontaneously. Further management outpatient as per PCP. Patient initially thought question of bleeding: Patient was not very clear about bleeding, Seen by GI most likely related to diarrhea worse is perianal source like hemorrhoid : Hemoglobin stable. No new episodes Continue PPIs and monitor CBC outpatient with PCP and further management as per the PCP. Above management discussed with the patient in detail length she understand and in agreement with the above plan, time spent 50 minutes and 50% time spent on counseling. Significant findings: As above. Procedures performed: None. Treatment and response: As above. Complications: None. Time Spent with Patient Time attestation: Total time spent providing and/or coordinating discharge services: Discharge coordination time: Greater than 30 minutes Physical Exam Vital Signs: Vital Signs: Last Vital Signs Temp 98.1 F 06/11/20 11:34 Pulse 64 06/11/20 11:34 Resp 16 06/11/20 11:34 BP 106/64 06/11/20 11:34 Pulse Ox 93 06/11/20 11:34 Body Mass Index 43.9 Physical exam: Constitutional: Not in acute distress. Cvs: rrr, [id number] , no murmur res: clear to auscultation ,no rhonchii or wheezing abd: no rebound or guarding ,nt, bs present. ext pulses present , no cyanosis neuro: axo3 , nonfocal. DS: Data Data Completed and Pending Labs on day of discharge: Laboratory Tests 06/07/20 06/07/20 06/07/20 21:33 21:33 21:33 WBC 10.9 H RBC 5.20 Hgb 13.9 Hct 42.5 MCV 81.7 MCH 26.7 L MCHC 32.7 RDW 14.0 Plt Count 327 MPV 11.2 Immature Gran % (Auto) 0.4 Neut % (Auto) 66.5 Lymph % (Auto) 22.1 [place] % (Auto) 10.5 Eos % (Auto) 0.3 Baso % (Auto) 0.2 Lymph # (Auto) 2.4 [place] # (Auto) 1.1 Eos # (Auto) 0.0 Baso # (Auto) 0.0 Abs Immat Gran (auto) 0.04 H Absolute Neuts (auto) 7.2 Absolute Nucleated RBC 0.000 Nucleated RBC % (auto) 0.0 Smear Tech's Comments Hold Blue Top SEE NOTE Sodium Potassium Chloride Carbon Dioxide Anion Gap BUN Creatinine Estim Creat Clear Calc Estimated GFR Random Glucose Estimat Average Glucose Hemoglobin A1c % Lactic Acid 1.7 Calcium Total Bilirubin Direct Bilirubin AST ALT Alkaline Phosphatase Lactate Dehydrogenase Troponin I High Sens C-Reactive Protein B-Natriuretic Peptide Total Protein Albumin Procalcitonin TSH Urine Color Urine Appearance Urine pH Ur Specific [place] Urine Protein Urine Glucose (UA) Urine Ketones Urine Blood Urine Nitrite Ur Leukocyte Esterase Coronavirus (PCR) Influenza Type A (PCR) Influenza Type B (PCR) RSV RNA Qual (PCR) Blood Type Antibody Screen 06/07/20 06/07/20 06/07/20 21:33 21:33 21:33 WBC RBC Hgb Hct MCV MCH MCHC RDW Plt Count MPV Immature Gran % (Auto) Neut % (Auto) Lymph % (Auto) [place] % (Auto) Eos % (Auto) Baso % (Auto) Lymph # (Auto) [place] # (Auto) Eos # (Auto) Baso # (Auto) Abs Immat Gran (auto) Absolute Neuts (auto) Absolute Nucleated RBC Nucleated RBC % (auto) Smear Tech's Comments Hold Blue Top Sodium 139 Potassium 3.5 Chloride 105 Carbon Dioxide 21 L Anion Gap 17 BUN 15 Creatinine 1.10 Estim Creat Clear Calc 68.7 Estimated GFR 52 Random Glucose 114 Estimat Average Glucose Hemoglobin A1c % Lactic Acid Calcium 8.1 L Total Bilirubin 0.3 Direct Bilirubin < 0.2 AST 17 ALT 19 Alkaline Phosphatase 49 Lactate Dehydrogenase 268 H Troponin I High Sens 3.9 C-Reactive Protein 11.22 H B-Natriuretic Peptide 11 Total Protein 6.5 Albumin 3.7 Procalcitonin 0.05 TSH 2.83 Urine Color Urine Appearance Urine pH Ur Specific [place] Urine Protein Urine Glucose (UA) Urine Ketones Urine Blood Urine Nitrite Ur Leukocyte Esterase Coronavirus (PCR) Influenza Type A (PCR) Influenza Type B (PCR) RSV RNA Qual (PCR) Blood Type Antibody Screen 06/07/20 06/08/20 06/08/20 21:33 01:24 01:54 WBC RBC Hgb Hct MCV MCH MCHC RDW Plt Count MPV Immature Gran % (Auto) Neut % (Auto) Lymph % (Auto) [place] % (Auto) Eos % (Auto) Baso % (Auto) Lymph # (Auto) [place] # (Auto) Eos # (Auto) Baso # (Auto) Abs Immat Gran (auto) Absolute Neuts (auto) Absolute Nucleated RBC Nucleated RBC % (auto) Smear Tech's Comments Hold Blue Top Sodium Potassium Chloride Carbon Dioxide Anion Gap BUN Creatinine Estim Creat Clear Calc Estimated GFR Random Glucose Estimat Average Glucose 117 Hemoglobin A1c % 5.7 Lactic Acid Calcium Total Bilirubin Direct Bilirubin AST ALT Alkaline Phosphatase Lactate Dehydrogenase Troponin I High Sens C-Reactive Protein B-Natriuretic Peptide Total Protein Albumin Procalcitonin TSH Urine Color YELLOW Urine Appearance CLEAR Urine pH 6.0 Ur Specific [place] 1.025 Urine Protein NEG Urine Glucose (UA) NEG Urine Ketones NEG Urine Blood NEG Urine Nitrite NEG Ur Leukocyte Esterase NEG Coronavirus (PCR) POSITIVE A Influenza Type A (PCR) NEGATIVE Influenza Type B (PCR) NEGATIVE RSV RNA Qual (PCR) NEGATIVE Blood Type Antibody Screen 06/08/20 06/08/20 06/09/20 13:08 13:38 06:15 WBC 7.6 RBC 4.72 Hgb 12.7 12.4 Hct 39.6 38.7 MCV 82.0 MCH 26.3 L MCHC 32.0 RDW 14.2 Plt Count 323 MPV 11.3 Immature Gran % (Auto) 0.5 H Neut % (Auto) 67.3 Lymph % (Auto) 23.4 [place] % (Auto) 8.7 Eos % (Auto) 0.0 Baso % (Auto) 0.1 Lymph # (Auto) 1.8 [place] # (Auto) 0.7 Eos # (Auto) 0.0 Baso # (Auto) 0.0 Abs Immat Gran (auto) 0.04 H Absolute Neuts (auto) 5.1 Absolute Nucleated RBC 0.000 Nucleated RBC % (auto) 0.0 Smear Tech's Comments VERIFIED Hold Blue Top Sodium Potassium Chloride Carbon Dioxide Anion Gap BUN Creatinine Estim Creat Clear Calc Estimated GFR Random Glucose Estimat Average Glucose Hemoglobin A1c % Lactic Acid Calcium Total Bilirubin Direct Bilirubin AST ALT Alkaline Phosphatase Lactate Dehydrogenase Troponin I High Sens C-Reactive Protein B-Natriuretic Peptide Total Protein Albumin Procalcitonin TSH Urine Color Urine Appearance Urine pH Ur Specific [place] Urine Protein Urine Glucose (UA) Urine Ketones Urine Blood Urine Nitrite Ur Leukocyte Esterase Coronavirus (PCR) Influenza Type A (PCR) Influenza Type B (PCR) RSV RNA Qual (PCR) Blood Type AB Positive Antibody Screen NEGATIVE 06/09/20 06/09/20 06:15 06:15 WBC RBC Hgb Hct MCV MCH MCHC RDW Plt Count MPV Immature Gran % (Auto) Neut % (Auto) Lymph % (Auto) [place] % (Auto) Eos % (Auto) Baso % (Auto) Lymph # (Auto) [place] # (Auto) Eos # (Auto) Baso # (Auto) Abs Immat Gran (auto) Absolute Neuts (auto) Absolute Nucleated RBC Nucleated RBC % (auto) Smear Tech's Comments Hold Blue Top Sodium Cancelled 141 Potassium Cancelled 4.1 Chloride Cancelled 109 H Carbon Dioxide Cancelled 24 Anion Gap Cancelled 12 BUN Cancelled 12 Creatinine Cancelled 0.80 Estim Creat Clear Calc Cancelled 94.4 Estimated GFR Cancelled > 60 Random Glucose Cancelled 129 H Estimat Average Glucose Hemoglobin A1c % Lactic Acid Calcium Cancelled 8.2 L Total Bilirubin Direct Bilirubin AST ALT Alkaline Phosphatase Lactate Dehydrogenase Troponin I High Sens C-Reactive Protein B-Natriuretic Peptide Total Protein Albumin Procalcitonin TSH Urine Color Urine Appearance Urine pH Ur Specific [place] Urine Protein Urine Glucose (UA) Urine Ketones Urine Blood Urine Nitrite Ur Leukocyte Esterase Coronavirus (PCR) Influenza Type A (PCR) Influenza Type B (PCR) RSV RNA Qual (PCR) Blood Type Antibody Screen Preliminary micro results at discharge 06/07/20 21:33 Blood Culture - Preliminary Blood - Venous No growth after 48 hours. 06/07/20 21:40 Blood Culture - Preliminary Blood - Venous No growth after 48 hours. Discharge Plan Discharge Patient Disposition: Home, Self-Care Referrals: Delmy Warner MD [Primary Care Provider] - Darrell Cano [Physician] - (folllow up in 2-3 weeks) Discharge Medications: New dexamethasone 6 mg tablet 6 mg PO DAILY Qty: 7 RF: 0 guaifenesin 100 mg/5 mL liquid 200 mg PO Q4H PRN (Reason: cough) Qty: 250 RF: 0 Continued prednisone 20 mg tablet 20 mg PO DAILY RF: 0 topiramate 25 mg tablet 50 mg PO BID RF: 0 acetaminophen 500 mg tablet 500 mg PO Q6H PRN (Reason: pain) RF: 0 levothyroxine 50 mcg tablet 50 mcg PO DAILY RF: 0 albuterol sulfate 90 mcg/actuation HFA aerosol inhaler 1 - 2 puff PO Q4-6H PRN (Reason: Dyspnea) RF: 0 fluoxetine 20 mg capsule 20 mg PO DAILY RF: 0 Changed omeprazole 20 mg capsule,delayed release(DR/EC) 20 mg PO BIDWMEAL Qty: 60 RF: 0 Discharge Orders: Discharge Order (Routine); Ordered 06/11/20 Ordered By: Ernestina Rayo Diet: advance to usual diet Activity on Discharge: As tolerated Stand Alone Forms: Patient Portal Discharge page Other Ambulatory Orders: Basic Metabolic Panel Fasting (Routine) Timeframe: 1 Week Facility: [facility] - Location: Laboratory Ordered By: Ernestina Rayo Complete Blood Count no Diff (Routine) Timeframe: 1 Week Facility: [facility] - Location: Laboratory Ordered By: Ernestina Rayo Visit Report Forms: Patient Portal Discharge page Care Plan Goals: Patient came with COVID pneumonia and acute hypoxemic respiratory failure : Started on dexamethasone and oxygen support- seems improved significantly Seen by infectious disease-patient will go home with dexamethasone and complete the course. Patient initially also has some diarrhea-probably related to COVID. Resolved spontaneously. Further management outpatient as per PCP. Patient initially thought question of bleeding: Patient was not very clear about bleeding, Seen by GI most likely related to diarrhea worse is perianal source like hemorrhoid : Hemoglobin stable. No new episodes Continue PPIs and monitor CBC outpatient with PCP and further management as per the PCP. Health Concerns: As above. Plan of Treatment: As above.
--- NOTE | 2020-06-11 12:32 | MHC.CM.PN ---
Pt will be discharged to home without services. Family will provide transportation to pt - of note, all members of her family are COVID + so there is no issue with someone coming to transport her as they will not enter the hospital and the pt will be masked. This was relayed to pt and RN on the unit.
== END 2020-06-11 14:30 | disposition home or self-care (01) | DRG 137 ==
LOC: HO.ED 06-08 00:22 → HO.EDOVER 06-08 03:52 → HO.ISO 06-08 20:03
PROVIDERS: Admitting Provider Internal Medicine; Emergency Provider Student in an Organized Health Care Education/Training Program; PCP Internal Medicine; Visit Provider Internal Medicine
DX: U07.1 COVID-19 (principal); J96.01 Acute respiratory failure with hypoxia; E03.9 Hypothyroidism, unspecified; F41.9 Anxiety disorder, unspecified; F32.9 Major depressive disorder, single episode, unspecified; K64.9 Unspecified hemorrhoids; K62.5 Hemorrhage of anus and rectum; E86.0 Dehydration; K21.9 Gastro-esophageal reflux disease without esophagitis; G43.909 Migraine, unspecified, not intractable, without status migrainosus; Z88.0 Allergy status to penicillin; Z79.52 Long term (current) use of systemic steroids; Z79.890 Hormone replacement therapy; Z79.899 Other long term (current) drug therapy
CPT/HCPCS: 0241U; 36415; 71045; 80048; 80076; 81003; 83036; 83605; 83615; 83880; 84145; 84443; 84484; 85014; 85018; 85025; 86140; 86850; 86900; 86901; 87040; 93005; 96360; 99285; J1650; J2405; J8540

== ENCOUNTER 2020-09-27 09:00 | Emergency (ER) | payer OTHER, SELFPAY ==
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
[2020-09-27 09:03] VITALS: BP 143/80; PULSE 85; RESP 16; TEMP 35.9; O2SAT 98; BMI 47.9
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
[2020-09-27] MEDS: Acetaminophen 325 MG TABLET 650 MG PO (09:52)
== END 2020-09-27 12:05 | disposition home or self-care (01) ==
PROVIDERS: Emergency Provider Emergency Medicine
DX: S39.012A Strain of muscle, fascia and tendon of lower back, initial encounter (principal); V43.52XA Car driver injured in collision with other type car in traffic accident, initial encounter; M54.2 Cervicalgia; Y93.89 Activity, other specified; Y92.414 Local residential or business street as the place of occurrence of the external cause; Y99.9 Unspecified external cause status
CPT/HCPCS: 72125; 72131; 99283; 99284

== ENCOUNTER 2020-11-10 19:59 | Emergency (ER) | payer OTHER, SELFPAY ==
--- NOTE | ~2020-11-10 | US_ITS ---
EXAMINATION: US VENOUS ULTRASOUND WITH DOPPLER LOWER EXTREMITY, RIGHT CLINICAL INFORMATION: Swelling. COMPARISON: Venous Doppler ultrasound exam right lower extremity 12/23/2019 TECHNIQUE: Ultrasound of the deep veins is performed from the hip to the calf with compression sonography and color and pulse Doppler assessment. Spectral analysis with color-flow imaging is performed. FINDINGS: There is normal venous compression and respiratory variation and augmented flow. The visualized common femoral vein, superficial femoral vein, profunda femoral vein, popliteal vein, and the trifurcation region shows no evidence of deep venous thrombosis. There is no significant popliteal fossa cyst. If the patient's symptoms persist, followup ultrasound in 5 days 7 days might be of value to exclude proximal propagation from a non-visualized calf vein. US/US venous duplex LE RT IMPRESSION: No DVT demonstrated in the right lower extremity.
[2020-11-10 20:01] VITALS: BP 147/86; PULSE 86; RESP 18; TEMP 36.8; O2SAT 98; BMI 45.7
--- NOTE | 2020-11-10 21:58 | ED.GENADULT ---
HPI - General Adult General Chief complaint: General Medical Stated complaint: R/O Dvt Time Seen by Provider: 11/10/20 21:36 Source: patient Mode of arrival: ambulatory History of Present Illness HPI narrative: 54-year-old female presents with complaints right lower extremity swelling that started a couple of days ago, she states that her right foot was ?swollen up like a balloon? and is now stated to be back to normal. She denies any recent travel, personal/family history of clotting disorders, recent immobility. Otherwise, she denies any shortness of breath, palpitations, or fevers. Related Data Home Medications Medication Instructions Recorded Confirmed acetaminophen 500 mg PO Q6H PRN 06/07/20 06/07/20 albuterol sulfate 1 - 2 puff PO Q4-6H PRN 06/07/20 06/07/20 fluoxetine 20 mg PO DAILY 06/07/20 06/07/20 levothyroxine 50 mcg PO DAILY 06/07/20 06/07/20 prednisone 20 mg PO DAILY 06/07/20 06/07/20 topiramate 50 mg PO BID 06/07/20 06/07/20 Previous Rx's Medication Instructions Recorded dexamethasone 6 mg PO DAILY #7 tab 06/11/20 guaifenesin 200 mg PO Q4H PRN #250 ml 06/11/20 omeprazole 20 mg PO BIDWMEAL #60 cap 06/11/20 acetaminophen 650 mg PO Q6H PRN #20 cap 09/27/20 cyclobenzaprine 10 mg PO BID PRN #10 tab 09/27/20 Allergies Allergy/AdvReac Type Severity Reaction Status Date / Time Penicillins [PENICILLINS] Allergy Unknown HIVES Verified 11/10/20 21:24 oseltamivir [From Tamiflu] Allergy Hives Verified 11/10/20 21:24 Review of Systems Review of Systems: Pertinent positives and negatives as stated in HPI 10 point review systems otherwise negative. [facility] Past Medical History Source: nursing notes reviewed Medical History Anxiety Depression GERD (gastroesophageal reflux disease) Hypothyroid Migraine Obesity Social History Social History Household Members: Family and Other Household Members Other:: ex Housing: House Do you presently have visiting nurse or other home services: No Alcohol intake: never Advance Directives: No Advance Directives Information Provided: Yes Patient : No service: No Current occupational status: employed Physical Exam Vital Signs: Vital Signs: Last Vital Signs Temp 98.2 F 11/10/20 20:01 Pulse 72 11/10/20 22:21 Resp 17 11/10/20 22:21 BP 128/76 11/10/20 22:21 Pulse Ox 97 11/10/20 22:21 Body Mass Index 45.7 VITAL SIGNS: Reviewed. GENERAL: Well developed, well nourished, in no acute distress. HEAD: Normocephalic/atraumatic EYES: PERRLA, EOMI OROPHARYNX: no oral lesions noted, posterior pharynx clear LUNGS: Normal breath sounds. No adventitious sounds or accessory muscle use. SpO2<> CARDIOVASCULAR: Regular rate and rhythm without noted murmurs ABDOMEN: Obese, Soft, non-tender, non-distended with bowel sounds. RIGHT LOWER EXTREMITY: Circumference of the calf is notably greater than left on comparison, there is no posterior calf pain tenderness, Homans negative, sensation and pulses are intact, no erythema/induration/tactile warmth Course Course Course Narrative: 54-year-old female with history and clinical presentation of a right greater than left sized calf, but foot appears to be within normal limits and there does not appear to be any neurovascular compromise. Will obtain venous duplex, but low suspicion for DVT. Review of all investigations negative for acute findings. Patient was informed of results and discharged in stable condition to her primary care provider for further outpatient management. Discharge Plan Discharge Clinical Impression: Right leg swelling Patient Disposition: Home, Self-Care Instructions: Leg Edema (ED) Additional Instructions: Resume all home medications as prescribed. Follow-up with your primary care provider in the morning for re-evaluation and further outpatient management. Return to the ER for any acute worsening of your symptoms. Prescriptions: No Action prednisone 20 mg tablet 20 mg PO DAILY RF: 0 topiramate 25 mg tablet 50 mg PO BID RF: 0 acetaminophen 500 mg tablet 500 mg PO Q6H PRN (Reason: pain) RF: 0 levothyroxine 50 mcg tablet 50 mcg PO DAILY RF: 0 albuterol sulfate 90 mcg/actuation HFA aerosol inhaler 1 - 2 puff PO Q4-6H PRN (Reason: Dyspnea) RF: 0 fluoxetine 20 mg capsule 20 mg PO DAILY RF: 0 dexamethasone 6 mg tablet 6 mg PO DAILY Qty: 7 RF: 0 guaifenesin 100 mg/5 mL liquid 200 mg PO Q4H PRN (Reason: cough) Qty: 250 RF: 0 omeprazole 20 mg capsule,delayed release(DR/EC) 20 mg PO BIDWMEAL Qty: 60 RF: 0 acetaminophen 325 mg capsule 650 mg PO Q6H PRN (Reason: pain) Qty: 20 RF: 0 cyclobenzaprine 10 mg tablet 10 mg PO BID PRN (Reason: muscle spasm) Qty: 10 RF: 0 Referrals: Delmy Warner MD [Primary Care Provider] - 2 days
[2020-11-10] MEDS: Acetaminophen 325 MG TABLET 650 MG PO (22:18)
[2020-11-10 22:21] VITALS: BP 128/76; PULSE 72; RESP 17; O2SAT 97
== END 2020-11-10 22:59 | disposition home or self-care (01) ==
PROVIDERS: Emergency Provider Student in an Organized Health Care Education/Training Program; PCP Internal Medicine
DX: M79.89 Other specified soft tissue disorders (principal)
CPT/HCPCS: 93971; 99284

== ENCOUNTER → 2021-06-09 07:57 | Outpatient (BNVA) | payer OTHER, SELFPAY | PROVIDERS: PCP Internal Medicine; Visit Provider Physician Assistant Surgical ==

== ENCOUNTER → 2021-07-06 08:11 | Outpatient (BNVA) | payer OTHER, SELFPAY | PROVIDERS: PCP Internal Medicine; Visit Provider Surgery ==

== ENCOUNTER 2021-07-07 07:58 | Outpatient (REF) | payer OTHER, SELFPAY ==
--- NOTE | ~2021-07-07 | XR_ITS ---
EXAMINATION: XR CHEST CLINICAL INFORMATION: Morbid/severe obesity due to excess calories COMPARISON: None TECHNIQUE: 2 views of the chest were obtained. FINDINGS: No significant abnormality is noted involving the heart, lungs, mediastinum, bony thorax or soft tissues. XR/XR chest 2V IMPRESSION: Unremarkable chest examination.
--- NOTE | 2021-07-07 08:18 | ECG_ITS ---
Test Reason : obese Blood Pressure : / mmHG Vent. Rate : 060 BPM Atrial Rate : 060 BPM P-R Int : 138 ms QRS Dur : 094 ms QT Int : 426 ms P-R-T Axes : 060 051 065 degrees QTc Int : 426 ms Normal sinus rhythm Normal ECG When compared with ECG of 07-JUN-2020 21:15, No significant change was found Referred By: George Mirza Electronically Signed By:YARA HERNANDEZ MD
[2021-07-07 08:21] LABS: MANUAL DIFF FLAG NO
[2021-07-07 08:59] LABS: Basophils Percent Auto 0.4 % (0-2); Eosinophils Absolute Auto 0.2 X10*3/uL (0.0-0.4); Eosinophils Percent Auto 2.9 % (0-4); Hematocrit 44.1 % (37.0-47.0); Hemoglobin 13.9 g/dl (12.0-16.0); Imm Gran Abs Auto 0.01 X10*3/uL (0.00-0.03); Imm Gran Pct Auto 0.1 % (0.0-0.4); Lymphocytes Absolute Auto 2.9 X10*3/uL (1.2-4.9); Lymphocytes Percent Auto 36.7 % (20-40); Mean Corpuscular HGB Conc 31.5 g/dl (31.0-35.0); Mean Corpuscular Hemoglobin 26.1 pg (27.0-33.0); Mean Corpuscular Volume 82.9 fL (80.0-98.0); Mean Platelet Volume 11.6 fL (9.4-12.3); Monocytes Absolute Auto 0.7 X10*3/uL (0.1-1.2); Monocytes Percent Auto 8.5 % (2-11); Neutrophils Percent Auto 51.4 % (45-73); Platelet Count 353 X10*3/uL (160-400); Red Blood Count 5.32 X10*6/uL (4.20-5.50); Red Cell Distribution Width 14.1 % (11.0-16.0); White Blood Count 7.9 X10*3/uL (4.8-10.8)
[2021-07-07 09:04] LABS: Estimated Average Glucose 111 mg/dL; Hemoglobin A1c % 5.5 %
[2021-07-07 09:48] LABS: Alanine Aminotransferase 18 U/L (0-31); Albumin Level 4.1 g/dL (3.5-5.0); Alkaline Phosphatase 52 U/L (39-117); Anion Gap 14 (12-20); Aspartate Amino Transferase 13 U/L (5-31); Bilirubin Total 0.3 mg/dL (0.0-1.0); Blood Urea Nitrogen 24 mg/dL (9-16); C Reactive Protein 0.28 mg/dL (< or = 0.50); Calcium 9.7 mg/dL (8.4-10.2); Carbon Dioxide 26 mmol/L (22-29); Chloride 107 mmol/L (96-108); Cholesterol 183 mg/dL; Estimated Glomerular Filt Rate 60; Glucose Random 92 mg/dL (60-115); HDL Cholesterol 47 mg/dL; Iron 56 mcg/dL (30-160); LDL Cholesterol Calculated 98 mg/dl; Potassium 4.9 mmol/L (3.3-5.1); Sodium 142 mmol/L (135-145); Total Protein 6.7 g/dL (6.5-8.0); Triglycerides 194 mg/dL
[2021-07-07 09:57] LABS: Ferritin 24 ng/mL (10-250); Insulin 16 uU/mL (2-29); TSH reflex Free T4 4.04 uIU/mL (0.32-4.0); Vitamin D 25-OH Total 18.5 ng/mL (>30)
[2021-07-07 09:59] LABS: Percent Iron Saturation 13 % (15-50); Total Iron Binding Capacity 423 mcg/dL (228-428); Unsaturated Iron Binding 367 ug/dL
[2021-07-07 10:07] LABS: Vitamin B12 260 pg/mL (200-900)
[2021-07-07 10:30] LABS: Free T4 (Free Thyroxine) 0.82 ng/dL (0.71-1.85)
[2021-07-08 14:17] LABS: Calcium (PTHI) 9.4 mg/dL (8.6-10.4); PTHI 53 pg/mL (14-64)
[2021-07-11 06:45] LABS: Zinc 81 mcg/dL (60-130)
[2021-07-13 06:26] LABS: Vitamin B1 10 nmol/L (8-30)
[2021-07-14 03:31] LABS: Vitamin A 63 mcg/dL (38-98)
== END 2021-07-07 07:59 | disposition home or self-care (01) ==
LOC: HO.LAB 07:58
PROVIDERS: PCP Internal Medicine; Visit Provider Surgery
DX: Z01.818 Encounter for other preprocedural examination (principal); E66.01 Morbid (severe) obesity due to excess calories; E03.9 Hypothyroidism, unspecified; J45.909 Unspecified asthma, uncomplicated; K21.9 Gastro-esophageal reflux disease without esophagitis
CPT/HCPCS: 36415; 71046; 80053; 80061; 82306; 82607; 82728; 82746; 83036; 83525; 83540; 83970; 84425; 84439; 84443; 84590; 84630; 85025; 86140; 93005

== ENCOUNTER 2021-07-29 07:56 | Outpatient (REF) | payer OTHER, SELFPAY ==
[2021-07-31 14:25] LABS: H Pylori Breath Test Negative (Negative)
== END 2021-07-29 07:57 | disposition home or self-care (01) ==
LOC: HO.LNP 07:56
PROVIDERS: Surgery; PCP Internal Medicine; Visit Provider Physician Assistant
DX: Z11.0 Encounter for screening for intestinal infectious diseases (principal); E03.9 Hypothyroidism, unspecified; E66.01 Morbid (severe) obesity due to excess calories; J45.909 Unspecified asthma, uncomplicated; K21.9 Gastro-esophageal reflux disease without esophagitis
CPT/HCPCS: 83013; 99211

== ENCOUNTER → 2021-08-10 08:10 | Outpatient (BNVA) | payer OTHER, SELFPAY | PROVIDERS: PCP Internal Medicine; Visit Provider Surgery | DX: Z13.89 Encounter for screening for other disorder (principal) ==

== ENCOUNTER → 2021-08-17 08:15 | Outpatient (BNVA) | payer OTHER, SELFPAY | PROVIDERS: PCP Internal Medicine; Visit Provider Dietitian, Registered | DX: E66.01 Morbid (severe) obesity due to excess calories (principal) | CPT/HCPCS: 97802 ==

== ENCOUNTER 2021-08-26 07:54 | Outpatient (REF) | payer OTHER, SELFPAY ==
--- NOTE | ~2021-08-26 | US_ITS ---
EXAMINATION: US COMPLETE ABDOMEN WITH LIVER ELASTOGRAPHY CLINICAL INFORMATION: Moderate obesity. COMPARISON: CT of the abdomen and pelvis done on 02/16/2020. TECHNIQUE: Real-time imaging of the abdominal viscera. Noninvasive ultrasound liver fibrosis assessment is performed using Antonino ElastPQ point quantification shear wave elastography (2D-SWE) with a C5-2 MHz transducer. Multiple elastography samples are obtained. FINDINGS: PANCREAS: Normal. The visualized pancreatic head and body are normal in appearance. The remainder of the pancreas is obscured from visualization by the overlying bowel gas. ABDOMINAL AORTA: The proximal, middle, and distal aortic segments are normal in caliber. INFERIOR VENA CAVA: Visualized portions are normal. LIVER: The liver shows mild diffuse heterogeneous abnormal increased echotexture, consistent with diffuse liver disease likely secondary to hepatic steatosis or hepatocellular disease or combination thereof. No superimposed focal liver lesion. The right lobe measures 15.9 cm in length. The left lobe measures 9.1 cm in length. Portal flow is towards the liver (hepatopetal). Shear wave liver elastography median stiffness is 1.55 m/s (reference: normal median stiffness is 1.3 m/s or less). IQR/median stiffness to assess sampling precision is 0.14 (reference: good quality data set is IQR/median stiffness of 0.15 or less). GALLBLADDER: Normal. The gallbladder is physiologically distended without evidence of stones, sludge, polyps, wall thickening or pericholecystic fluid. COMMON BILE DUCT: Normal in caliber measuring 0.4 cm in diameter. RIGHT KIDNEY: Normal. No hydronephrosis. No renal calculi or focal parenchymal lesions. The kidney measures 9.8 cm in maximum dimension. LEFT KIDNEY: Normal. No hydronephrosis. No renal calculi or focal parenchymal lesions. The kidney measures 9.8 cm in maximum dimension. SPLEEN: Normal. The spleen measures 10.6 cm in maximum dimension. FREE FLUID: None. US/US abdomen comp w elastography IMPRESSION: 1. The liver shows mild diffuse heterogeneous abnormal increased echotexture consistent with diffuse liver disease likely secondary to hepatic steatosis or hepatocellular disease or combination thereof without any superimposed sonographically detectable focal liver lesion. The portal vein is patent and shows hepatopetal flow. 2. Liver elastography: In the absence of other known clinical signs, measurements rule out compensated advanced chronic liver disease. If there are known clinical signs, further testing may be needed for confirmation. REFERENCE: Society of Radiologists in Ultrasound Liver Stiffness Thresholds (2020): LIVER STIFFNESS THRESHOLDS: *Liver Stiffness equal or less than 1.3 m/s: High probability of being normal. *Liver Stiffness less than 1.7 m/s: In the absence of other known clinical signs, rules out compensated advanced chronic liver disease. *Liver Stiffness 1.7-2.1 m/s: Suggestive of compensated advanced chronic liver disease but need further test for confirmation. *Liver Stiffness over 2.1 m/s: Rules in compensated advanced chronic liver disease. *Liver Stiffness over 2.4 m/s: Suggestive of clinically significant portal hypertension. QUALITY OF DATA SET: *IQR/Median value equal or less than 0.15 implies a quality data set. *IQR/Median value over 0.15 implies a poor quality data set. SIGNIFICANT CHANGE FROM PRIOR EXAM: Significant change if liver stiffness measurement is 10% or greater from prior exam. OTHER CONSIDERATIONS: The stage of liver fibrosis may be overestimated in the setting of acute hepatitis, liver inflammation, elevated liver function tests, hepatic vascular congestion, obstructive cholestasis, non-fasting state, and infiltrative diseases such as amyloidosis and lymphoma. In some patients with NAFLD, the liver stiffness thresholds for compensated advanced chronic liver disease may be lower. In causes other than viral hepatitis and NAFLD, liver stiffness thresholds are not well established.
--- NOTE | ~2021-08-26 | FL_ITS ---
EXAMINATION: XR FLUOROSCOPY UPPER GI WITH AIR CLINICAL INFORMATION: Obesity COMPARISON: None TECHNIQUE: Upper GI was performed using thin and thick barium and effervescent granules. FINDINGS: Esophageal motility is normal. There is a small sliding-type hiatal hernia. There is mild gastroesophageal reflux. The stomach and duodenum are normal-appearing. No fold thickening, mass, ulcer or stricture is seen FLUOROSCOPY TIME: 0.7 minutes DOSE AREA PRODUCT: 6.6 tapia per centimeter squared. 23 saved fluoroscopic images. FL/FL upper GI w air IMPRESSION: Small sliding-type hiatal hernia and mild gastroesophageal reflux.
[2021-08-26 11:12] LABS: TSH reflex Free T4 1.37 uIU/mL (0.32-4.0)
== END 2021-08-26 07:55 | disposition home or self-care (01) ==
LOC: HO.US 07:54
PROVIDERS: PCP Internal Medicine; Visit Provider Surgery
DX: E66.01 Morbid (severe) obesity due to excess calories (principal); K21.9 Gastro-esophageal reflux disease without esophagitis; E03.9 Hypothyroidism, unspecified; J45.909 Unspecified asthma, uncomplicated
CPT/HCPCS: 36415; 74246; 76705; 76981; 84443

== ENCOUNTER → 2021-09-08 08:01 | Outpatient (BNVA) | payer OTHER, SELFPAY | PROVIDERS: PCP Internal Medicine; Referring Provider Surgery; Visit Provider Dietitian, Registered | DX: E66.01 Morbid (severe) obesity due to excess calories (principal) | CPT/HCPCS: 97803 ==

== ENCOUNTER → 2021-09-23 08:13 | Outpatient (BNVA) | payer OTHER, SELFPAY | PROVIDERS: PCP Internal Medicine; Visit Provider Surgery | DX: Z13.89 Encounter for screening for other disorder (principal) ==

== ENCOUNTER 2021-09-25 19:16 | Emergency (ER) | payer OTHER, SELFPAY ==
[2021-09-25 20:38] VITALS: BP 116/70; PULSE 68; RESP 16; TEMP 36.4; O2SAT 96; BMI 43.7
[2021-09-25 20:51] LABS: MANUAL DIFF FLAG NO
[2021-09-25 20:52] LABS: Basophils Percent Auto 0.4 % (0-2); Eosinophils Absolute Auto 0.2 X10*3/uL (0.0-0.4); Eosinophils Percent Auto 2.2 % (0-4); Hemoglobin 12.9 g/dl (12.0-16.0); Imm Gran Abs Auto 0.02 X10*3/uL (0.00-0.03); Imm Gran Pct Auto 0.2 % (0.0-0.4); Lymphocytes Absolute Auto 3.3 X10*3/uL (1.2-4.9); Lymphocytes Percent Auto 36.3 % (20-40); Mean Corpuscular HGB Conc 31.5 g/dl (31.0-35.0); Mean Corpuscular Hemoglobin 25.5 pg (27.0-33.0); Mean Corpuscular Volume 81.2 fL (80.0-98.0); Mean Platelet Volume 10.5 fL (9.4-12.3); Monocytes Absolute Auto 0.7 X10*3/uL (0.1-1.2); Neutrophils Absolute Auto 4.7 x10*3/uL (2.0-8.3); Neutrophils Percent Auto 52.9 % (45-73); Platelet Count 310 X10*3/uL (160-400); Red Blood Count 5.05 X10*6/uL (4.20-5.50); Red Cell Distribution Width 14.1 % (11.0-16.0)
[2021-09-25 21:13] LABS: Anion Gap 11 (12-20); Blood Urea Nitrogen 17 mg/dL (9-16); Calcium 9.5 mg/dL (8.4-10.2); Carbon Dioxide 28 mmol/L (22-29); Chloride 106 mmol/L (96-108); Creatinine Clr Calc Pharmacy 76.8; Estimated Glomerular Filt Rate 60; Glucose Random 129 mg/dL (60-115); Potassium 3.8 mmol/L (3.3-5.1); Sodium 141 mmol/L (135-145)
== END 2021-09-25 21:56 | disposition left against medical advice (07) ==
PROVIDERS: Emergency Provider Emergency Medicine; PCP Internal Medicine
DX: M79.604 Pain in right leg (principal)
CPT/HCPCS: 36415; 80048; 85025; 99282; 99283

== ENCOUNTER 2021-10-04 16:58 | Emergency (ER) | payer OTHER, SELFPAY ==
[2021-10-04 17:02] VITALS: BP 136/64; PULSE 73; RESP 18; TEMP 36.9; O2SAT 98; BMI 42.7
[2021-10-04 17:18] LABS: MANUAL DIFF FLAG NO
[2021-10-04 17:21] LABS: Basophils Percent Auto 0.5 % (0-2); Eosinophils Absolute Auto 0.3 X10*3/uL (0.0-0.4); Eosinophils Percent Auto 3.4 % (0-4); Hematocrit 38.9 % (37.0-47.0); Hemoglobin 12.4 g/dl (12.0-16.0); Imm Gran Abs Auto 0.02 X10*3/uL (0.00-0.03); Imm Gran Pct Auto 0.2 % (0.0-0.4); Lymphocytes Absolute Auto 2.8 X10*3/uL (1.2-4.9); Lymphocytes Percent Auto 32.4 % (20-40); Mean Corpuscular HGB Conc 31.9 g/dl (31.0-35.0); Mean Corpuscular Hemoglobin 25.9 pg (27.0-33.0); Mean Corpuscular Volume 81.2 fL (80.0-98.0); Monocytes Absolute Auto 0.8 X10*3/uL (0.1-1.2); Monocytes Percent Auto 9.5 % (2-11); Neutrophils Absolute Auto 4.6 x10*3/uL (2.0-8.3); Platelet Count 319 X10*3/uL (160-400); Red Blood Count 4.79 X10*6/uL (4.20-5.50); Red Cell Distribution Width 14.6 % (11.0-16.0); White Blood Count 8.5 X10*3/uL (4.8-10.8)
[2021-10-04 17:36] LABS: Alanine Aminotransferase 12 U/L (0-31); Albumin Level 3.8 g/dL (3.5-5.0); Alkaline Phosphatase 52 U/L (39-117); Anion Gap 9 (12-20); Aspartate Amino Transferase 12 U/L (5-31); Bilirubin Direct < 0.2 mg/dL (0.0-0.5); Bilirubin Total 0.3 mg/dL (0.0-1.0); Blood Urea Nitrogen 14 mg/dL (9-16); Carbon Dioxide 29 mmol/L (22-29); Chloride 108 mmol/L (96-108); Creatinine Clr Calc Pharmacy 75.8; Estimated Glomerular Filt Rate 60; Glucose Random 86 mg/dL (60-115); Potassium 4.2 mmol/L (3.3-5.1); Sodium 142 mmol/L (135-145); Total Protein 6.1 g/dL (6.5-8.0)
[2021-10-04 17:38] LABS: COVID-19 Test Negative (Negative); IDNOW Serial# 55D5AD1C
[2021-10-04 17:39] LABS: Influenza A Negative (Negative); Influenza B2 Negative (Negative)
== END 2021-10-04 21:28 | disposition left against medical advice (07) ==
PROVIDERS: Emergency Provider Emergency Medicine; PCP Internal Medicine
DX: R10.30 Lower abdominal pain, unspecified (principal); Z20.822 Contact with and (suspected) exposure to COVID-19
CPT/HCPCS: 80053; 82248; 85025; 87502; 87635; 99283

== ENCOUNTER 2021-10-13 14:38 | Emergency (ER) | payer OTHER, SELFPAY ==
--- NOTE | ~2021-10-13 | XR_ITS ---
EXAMINATION: XR CHEST CLINICAL INFORMATION: Shortness of breath COMPARISON: Chest radiographs 07/07/2021, 06/07/2020 TECHNIQUE: 2 views of the chest were obtained. FINDINGS: No lobar or segmental There are no definite groundglass opacity. No effusion. Heart normal. The costophrenic sulci are clear. The hilar and mediastinal contours are normal. There are mild multilevel degenerative changes thoracic spine. XR/XR chest 2V IMPRESSION: Unremarkable examination.
[2021-10-13 14:48] VITALS: BP 123/75; PULSE 86; O2SAT 97
[2021-10-13 15:14] VITALS: BP 121/74; PULSE 80; RESP 18; TEMP 36.9; O2SAT 98; BMI 44.0
--- NOTE | 2021-10-13 16:29 | ED_ITS ---
HPI - URI/Sore Throat General Chief Complaint: Upper Respiratory Symptoms Stated Complaint: +COVID TODAY,COUGH,FLU SX PER EMS Time Seen by Provider: 10/13/21 16:10 Source: patient Mode of arrival: ambulatory Limitations: no limitations History of Present Illness HPI Narrative: 55 yo female with history of asthma, migraines, hypothyroidism, GERD, anxiety/depression here with reports of sore throat starting Tuesday. Yesterday had slight cough, nasal congestion. Today was noted to have some chest tightness, feeling woozy and cough with wheezing. No fevers, chills, leg swelling or leg pain Had COVID 2019 with 5 day admission for hypoxia/pna per patient. Has had 4 vaccines for COVID (last booster 1 week ago) Tested + for COVID this morning at work [employer] Home Medications Medication Instructions Recorded Confirmed acetaminophen 500 mg tablet 500 mg PO Q6H PRN 06/07/20 07/06/21 albuterol sulfate 90 mcg/actuation 1 - 2 puff PO Q4-6H PRN 06/07/20 07/06/21 aerosol inhaler levothyroxine 50 mcg tablet 50 mcg PO DAILY 06/07/20 07/06/21 hydroxyzine HCl 25 mg tablet 25 mg PO BID PRN 07/06/21 07/06/21 Previous Rx's Medication Instructions Recorded omeprazole 20 mg capsule,delayed 20 mg PO BIDWMEAL #60 cap 06/11/20 release acetaminophen 325 mg capsule 650 mg PO Q6H PRN #20 cap 09/27/20 cholecalciferol (vitamin D3) 125 125 mcg PO DAILY #30 cap 07/10/21 mcg (5,000 unit) capsule levothyroxine 75 mcg tablet 75 mcg PO DAILY #30 tab 07/10/21 (Synthroid) mecobalamin (vitamin B12) 1,000 1,000 mcg SUBLINGUAL DAILY #30 tab 07/10/21 mcg disintegrating tablet,sublingual docusate sodium 100 mg capsule 100 mg PO DAILY #30 cap 08/10/21 (Colace) levothyroxine 75 mcg capsule 75 mcg PO DAILY #30 cap 08/29/21 prednisone 20 mg tablet 40 mg PO DAILY #10 tab 10/13/21 Allergies Allergy/AdvReac Type Severity Reaction Status Date / Time Penicillins [PENICILLINS] Allergy Unknown HIVES Verified 02/14/22 12:15 oseltamivir [From Tamiflu] Allergy Hives Verified 07/06/21 12:15 dexamethasone AdvReac Severe Shakiness Verified 07/06/21 12:15 Review of Systems Review of Systems: Yes all other systems are reviewed and are negative Constitutional: Constitutional: Reports no additional constitutional complain ts, Denies body ache(s), Denies chills, Denies fever(s), Denies headache(s) and Denies weakness Eyes: Eyes: Reports no additional eye complaints and Denies change in vision ENT: Reports system reviewed and no additional complaints, except as documented, Denies dizziness, Denies headache(s), Reports nasal congestion, Denies nasal discharge, Denies neck pain and Reports sore throat Cardiovascular: Cardiovascular: Reports no additional cardiovascular complaints, Reports chest pain, Denies leg edema and Reports dyspnea Respiratory: Respiratory: Reports no additional respiratory complaints, Reports cough, Reports dyspnea and Reports wheezing Gastrointestinal: Gastrointestinal: Reports no additional gastrointestinal complaints, Denies abdominal pain, Denies diarrhea, Denies nausea and Denies vomiting Genitourinary: Genitourinary: Reports no additional female genitourinary complaints and Denies urinary incontinence Musculoskeletal: Musculoskeletal: Reports no additional musculoskeletal complaints, Denies back pain, Denies arthralgias, Denies joint swelling, Denies neck pain, Denies numbness and Denies tingling Integumentary/Breasts: Skin/Breast: Reports system reviewed and no additional complaints, except as docu and Denies rash Neurologic: Denies Abnormal speech present, Denies dizziness, Denies headache(s), Denies numbness, Denies tingling and Denies weakness Allergic/Immunologic: Allergic/Immunologic: Reports wheezing PMFSH Past Medical History Attestation statement: The following information was validated with the patient. Source: old records reviewed and nursing notes reviewed Medical History Anxiety Asthma Depression GERD (gastroesophageal reflux disease) Hypothyroid Migraine Morbid obesity Obesity Surgical History History of mastopexy Family History Family History Mother H/O heart artery stent Arthritis Hypertension Hypercholesteremia Skin cancer of face Father Diabetes Hypertension Parkinson disease Sister Hypertension Hypercholesteremia Son GERD (gastroesophageal reflux disease) Social History Social History Household Members: Family and Other Household Members Other:: ex Housing: House Do you presently have visiting nurse or other home services: No Alcohol intake: never Patient Tobacco Use Status: Never used Tobacco Advance Directives: No Advance Directives Information Provided: No service: No Current occupational status: employed Physical Exam Vital Signs: Vital Signs: Last Vital Signs Temp 98.4 F 10/13/21 15:14 Pulse 80 10/13/21 15:14 Resp 18 10/13/21 15:14 BP 121/74 10/13/21 15:14 Pulse Ox 98 10/13/21 15:14 BMI result Body Mass Index 44.0 Const: General: cooperative, healthy appearing, comfortable and no acute distress Orientation/consciousness: patient oriented x3 Limitations: no limitations HEENT: Head: Yes normal to inspection Ears: hearing grossly normal bilaterally and TM's normal bilaterally General nose exam: Normal external nose present Face and sinus: Yes normal facial exam Mouth: Normal oral and palatal mucosa present Throat: Yes posterior oropharynx normal, Yes tonsils normal and Yes uvula midline Eyes: General: appearance normal, both eyes and all related structures Pupils: Equal, round and reactive pupils present Neck: Neck: Yes normal visual inspection, Yes full ROM, Yes no lymphadenopathy and Yes no meningeal signs Chest: Chest palpation & inspection: normal inspection of the chest Resp: Other: Frequent dry cough Mild expiratory wheezing Effort & Inspection: normal respiratory effort Cardio: Rate: regular rate Rhythm: regular rhythm Peripheral pulses: Peripheral pulses 2+ throughout GI: Inspection: Yes normal to inspection Palpation (GI): Soft to palpation and nontender Auscultation: normal bowel sounds Back/Spine/Pelvis: Thoracic/Lumbar Spine: thoracic and lumbar spine normal to inspection Skin: General skin exam: no rashes or lesions noted Neuro: General: patient oriented x3, no meningeal signs, no focal motor deficits and normal sensation to monofilament Cranial nerves: Yes Equal, round and reactive pupils present Cognition (Neuro): normal cognition Speech: No Abnormal speech present Gait exam (Neuro): Normal gait present Motor exam (neuro): 5/5 motor strength present throughout Extrem: General: Yes normal to inspection, Yes no pedal edema and Yes no calf tenderness Course Course Course Narrative: 55 yo female here COVID + w/ symptoms x3 days. C/o chest tightness, SOB with dry cough. VSS. Exam benign. Will check CXR, labs for antivirals Reevaluation(s) Reevaluation #1: X-ray shows no acute finding. Labs unremarkable. Patient was offered Paxlovid but she tells me that she had allergic reaction to Tamiflu so we decided to refer her to have monoclonal antibodies instead. A referral sheet was sent to cough some. Reviewed worrisome signs and symptoms of when to return to the emergency department. Comfortable discharge home. Time: 17:30 MDM - URI/Sore Throat MDM Narrative Medical decision making narrative: asthma exacerbation, viral syndrome, pna pe-less likely with no clinical findings concerning for DVT. No hypoxia, no tachypnea, no tachycardia Medical Records Attestation: I reviewed the patient's medical records. Lab Data Attestation: I reviewed the patient's lab results. Result diagrams: 10/13/21 16:47 10/13/21 16:47 Labs: Lab Results 10/13/21 10/13/21 Range/Units 16:47 16:47 WBC 6.7 (4.8-10.8) X10*3/uL RBC 4.99 (4.20-5.50) X10*6/uL Hgb 13.0 (12.0-16.0) g/dl Hct 40.7 (37.0-47.0) % MCV 81.6 (80.0-98.0) fL MCH 26.1 L (27.0-33.0) pg MCHC 31.9 (31.0-35.0) g/dl RDW 14.7 (11.0-16.0) % Plt Count 274 (160-400) X10*3/uL MPV 10.8 (9.4-12.3) fL Immature Gran % (Auto) 0.3 (0.0-0.4) % Neut % (Auto) 53.6 (45-73) % Lymph % (Auto) 27.6 (20-40) % [place] % (Auto) 14.5 H (2-11) % Eos % (Auto) 3.3 (0-4) % Baso % (Auto) 0.7 (0-2) % Lymph # (Auto) 1.9 (1.2-4.9) X10*3/uL [place] # (Auto) 1.0 (0.1-1.2) X10*3/uL Eos # (Auto) 0.2 (0.0-0.4) X10*3/uL Baso # (Auto) 0.1 (0.0-0.2) X10*3/uL Abs Immat Gran (auto) 0.02 (0.00-0.03) X10*3/uL Absolute Neuts (auto) 3.6 (2.0-8.3) x10*3/uL Absolute Nucleated RBC 0.000 (0.0-0.012) X10*3/uL Nucleated RBC % (auto) 0.0 (0.0-0.2) /100WBC Sodium 143 (135-145) mmol/L Potassium 4.2 (3.3-5.1) mmol/L Chloride 108 (96-108) mmol/L Carbon Dioxide 26 (22-29) mmol/L Anion Gap 13 (12-20) BUN 18 H (9-16) mg/dL Creatinine 0.85 (0.5-1.4) mg/dL Estim Creat Clear Calc 88.1 Estimated GFR > 60 Random Glucose 102 (60-115) mg/dL Calcium 8.8 (8.4-10.2) mg/dL Total Bilirubin < 0.2 (0.0-1.0) mg/dL Direct Bilirubin < 0.2 (0.0-0.5) mg/dL AST 14 (5-31) U/L ALT 18 (0-31) U/L Alkaline Phosphatase 52 (39-117) U/L Total Protein 6.3 L (6.5-8.0) g/dL Albumin 3.7 (3.5-5.0) g/dL Imaging Data Chest x-ray: Attestation: I personally reviewed and interpreted this imaging study as follows: Radiologist's impression: [address] [address] XRay Report Signed Patient: Ashley Bragg MR#: [id number] : 1965 Acct:[id number] Age/Sex: 55 / F ADM Date: 10/13/21 Loc: HO.ED Attending Dr: Ordering Physician: Steffany ED Physician Date of Service: 10/13/21 Procedure(s): XR chest 2V Accession Number(s): [id number] cc: Generic ED Physician~ EXAMINATION: XR CHEST CLINICAL INFORMATION: Shortness of breath COMPARISON: Chest radiographs 07/07/2021, 06/07/2020 TECHNIQUE: 2 views of the chest were obtained. FINDINGS: No lobar or segmental There are no definite groundglass opacity. No effusion. Heart normal. The costophrenic sulci are clear. The hilar and mediastinal contours are normal. There are mild multilevel degenerative changes thoracic spine. XR/XR chest 2V IMPRESSION: Unremarkable examination. Discharge Plan Discharge Clinical Impression: COVID, Asthma exacerbation Patient Disposition: Home, Self-Care Instructions: Asthma (ED), COVID-19 (Coronavirus Disease 2019) (ED) Additional Instructions: Quarantine for 5 days. You may return to work after 5 days if your fever free for 24 hours without any antipyretics Your lab work and x-ray looks normal today Please return for any worsening shortness of breath or chest pain Alternate Motrin and Tylenol for pain or fever Increase fluids, rest I sent a referral for monoclonal antibodies. They will call you to set up the appointment Prescriptions: New prednisone 20 mg tablet 40 mg PO DAILY Qty: 10 0RF No Action cholecalciferol (vitamin D3) 125 mcg (5,000 unit) capsule 125 mcg PO DAILY Qty: 30 2RF mecobalamin (vitamin B12) 1,000 mcg tablet,disintegrating 1,000 mcg sublingual DAILY Qty: 30 2RF Rx Instructions: place tablet under tongue and allow to dissolve for at least30 secs before swallowing levothyroxine [Synthroid] 75 mcg tablet 75 mcg PO DAILY Qty: 30 0RF Rx Instructions: Alternate every other day with the 50mcg dose levothyroxine 75 mcg capsule 75 mcg PO DAILY Qty: 30 2RF acetaminophen 500 mg tablet 500 mg PO Q6H PRN (Reason: pain) 0RF levothyroxine 50 mcg tablet 50 mcg PO DAILY 0RF albuterol sulfate 90 mcg/actuation HFA aerosol inhaler 1 - 2 puff PO Q4-6H PRN (Reason: Dyspnea) 0RF omeprazole 20 mg capsule,delayed release(DR/EC) 20 mg PO BIDWMEAL Qty: 60 0RF acetaminophen 325 mg capsule 650 mg PO Q6H PRN (Reason: pain) Qty: 20 0RF hydroxyzine HCl 25 mg tablet 25 mg PO BID PRN0RF docusate sodium [Colace] 100 mg capsule 100 mg PO DAILY Qty: 30 2RF Referrals: Delmy Warner MD [Primary Care Provider] - 1 week (ER follow-up) Stand Alone Forms: Work/School Release
[2021-10-13 16:51] LABS: MANUAL DIFF FLAG NO
[2021-10-13 16:57] LABS: Basophils Absolute Auto 0.1 X10*3/uL (0.0-0.2); Basophils Percent Auto 0.7 % (0-2); Eosinophils Absolute Auto 0.2 X10*3/uL (0.0-0.4); Eosinophils Percent Auto 3.3 % (0-4); Hematocrit 40.7 % (37.0-47.0); Imm Gran Abs Auto 0.02 X10*3/uL (0.00-0.03); Imm Gran Pct Auto 0.3 % (0.0-0.4); Lymphocytes Absolute Auto 1.9 X10*3/uL (1.2-4.9); Lymphocytes Percent Auto 27.6 % (20-40); Mean Corpuscular HGB Conc 31.9 g/dl (31.0-35.0); Mean Corpuscular Hemoglobin 26.1 pg (27.0-33.0); Mean Corpuscular Volume 81.6 fL (80.0-98.0); Mean Platelet Volume 10.8 fL (9.4-12.3); Monocytes Percent Auto 14.5 % (2-11); Neutrophils Absolute Auto 3.6 x10*3/uL (2.0-8.3); Neutrophils Percent Auto 53.6 % (45-73); Platelet Count 274 X10*3/uL (160-400); Red Blood Count 4.99 X10*6/uL (4.20-5.50); Red Cell Distribution Width 14.7 % (11.0-16.0); White Blood Count 6.7 X10*3/uL (4.8-10.8)
[2021-10-13 17:17] LABS: Alanine Aminotransferase 18 U/L (0-31); Albumin Level 3.7 g/dL (3.5-5.0); Alkaline Phosphatase 52 U/L (39-117); Anion Gap 13 (12-20); Aspartate Amino Transferase 14 U/L (5-31); Bilirubin Direct < 0.2 mg/dL (0.0-0.5); Bilirubin Total < 0.2 mg/dL (0.0-1.0); Blood Urea Nitrogen 18 mg/dL (9-16); Calcium 8.8 mg/dL (8.4-10.2); Carbon Dioxide 26 mmol/L (22-29); Chloride 108 mmol/L (96-108); Creatinine Clr Calc Pharmacy 88.1; Estimated Glomerular Filt Rate > 60; Glucose Random 102 mg/dL (60-115); Potassium 4.2 mmol/L (3.3-5.1); Sodium 143 mmol/L (135-145); Total Protein 6.3 g/dL (6.5-8.0)
== END 2021-10-13 18:04 | disposition home or self-care (01) ==
PROVIDERS: Nurse Practitioner Family; Emergency Provider Internal Medicine; PCP Internal Medicine
DX: U07.1 COVID-19 (principal); J45.901 Unspecified asthma with (acute) exacerbation
CPT/HCPCS: 36415; 71046; 80048; 80076; 85025; 99283

== ENCOUNTER → 2021-10-15 12:01 | Outpatient (BNVA) | payer OTHER, SELFPAY | PROVIDERS: PCP Internal Medicine; Visit Provider Surgery | DX: Z13.89 Encounter for screening for other disorder (principal) ==

== ENCOUNTER → 2021-10-16 12:37 | Outpatient (BNVA) | payer OTHER, SELFPAY | PROVIDERS: PCP Internal Medicine; Visit Provider Surgery | DX: Z13.89 Encounter for screening for other disorder (principal) ==

== ENCOUNTER 2021-10-20 12:07 | Outpatient (REF) | payer OTHER, SELFPAY ==
--- NOTE | ~2021-10-20 | XR_ITS ---
EXAMINATION: XR CHEST CLINICAL INFORMATION: Covid 19 COMPARISON: Chest 08/13/2021 TECHNIQUE: 2 views of the chest were obtained. FINDINGS: No significant abnormality is noted involving the heart, lungs, mediastinum, bony thorax or soft tissues. XR/XR chest 2V IMPRESSION: Unremarkable chest examination.
== END 2021-10-20 12:08 | disposition home or self-care (01) ==
LOC: HO.XRAY 12:07
PROVIDERS: PCP Internal Medicine; Visit Provider Surgery
DX: U07.1 COVID-19 (principal)
CPT/HCPCS: 71046

== ENCOUNTER 2021-10-22 | Outpatient (REF) | payer OTHER, SELFPAY ==
[2021-10-16 07:57] LABS: MANUAL DIFF FLAG NO
[2021-10-16 08:19] LABS: Basophils Percent Auto 0.3 % (0-2); Eosinophils Absolute Auto 0.1 X10*3/uL (0.0-0.4); Eosinophils Percent Auto 1.3 % (0-4); Hematocrit 42.1 % (37.0-47.0); Hemoglobin 13.5 g/dl (12.0-16.0); Imm Gran Abs Auto 0.01 X10*3/uL (0.00-0.03); Imm Gran Pct Auto 0.1 % (0.0-0.4); Lymphocytes Absolute Auto 4.7 X10*3/uL (1.2-4.9); Lymphocytes Percent Auto 49.5 % (20-40); Mean Corpuscular HGB Conc 32.1 g/dl (31.0-35.0); Mean Corpuscular Hemoglobin 25.6 pg (27.0-33.0); Mean Corpuscular Volume 79.9 fL (80.0-98.0); Mean Platelet Volume 10.8 fL (9.4-12.3); Monocytes Absolute Auto 0.8 X10*3/uL (0.1-1.2); Monocytes Percent Auto 7.9 % (2-11); Neutrophils Absolute Auto 3.9 x10*3/uL (2.0-8.3); Neutrophils Percent Auto 40.9 % (45-73); Platelet Count 301 X10*3/uL (160-400); Red Blood Count 5.27 X10*6/uL (4.20-5.50); Red Cell Distribution Width 14.6 % (11.0-16.0); White Blood Count 9.5 X10*3/uL (4.8-10.8)
[2021-10-16 08:26] LABS: Estimated Average Glucose 117 mg/dL; Hemoglobin A1c % 5.7 %; Prothrombin Time 11.1 SEC (9.9-13.0)
[2021-10-16 08:29] LABS: Partial Thromboplastin Time 28.1 SEC (24.1-38.0)
[2021-10-16 08:52] LABS: Alanine Aminotransferase 15 U/L (0-31); Albumin Level 3.9 g/dL (3.5-5.0); Alkaline Phosphatase 48 U/L (39-117); Anion Gap 14 (12-20); Aspartate Amino Transferase 10 U/L (5-31); Bilirubin Total 0.4 mg/dL (0.0-1.0); Blood Urea Nitrogen 23 mg/dL (9-16); C Reactive Protein 0.42 mg/dL (< or = 0.50); Calcium 9.4 mg/dL (8.4-10.2); Carbon Dioxide 26 mmol/L (22-29); Chloride 105 mmol/L (96-108); Cholesterol 181 mg/dL; Estimated Glomerular Filt Rate > 60; Glucose Random 90 mg/dL (60-115); HDL Cholesterol 53 mg/dL; LDL Cholesterol Calculated 107 mg/dl; Potassium 3.7 mmol/L (3.3-5.1); Sodium 141 mmol/L (135-145); Total Protein 6.6 g/dL (6.5-8.0); Triglycerides 106 mg/dL
[2021-10-16 09:04] LABS: Insulin 16 uU/mL (2-29); TSH reflex Free T4 3.88 uIU/mL (0.32-4.0)
[2021-10-16 16:26] VITALS: BMI 43.3
--- NOTE | 2021-10-17 23:07 | MHC.SHP ---
Pre-Procedural Eval Section A Date of Service: 10/17/21 The patient is an INPATIENT: Yes The History & Physical has been completed within 30 days and I have reviewed it.: Yes Section B Chief Complaint: obesity Relevant Family History (Specify if Yes): No Relevant Social History: None Present Medications: None Medical History: No relevant PMH History of Previous Operations: No relevant previous surgery Allergies: Allergies Allergy/AdvReac Type Severity Reaction Status Date / Time oseltamivir [From Tamiflu] Allergy Severe Hives Verified 10/16/21 16:29 Penicillins [PENICILLINS] Allergy Severe HIVES Verified 10/16/21 16:29 dexamethasone AdvReac Severe Shakiness Verified 10/16/21 16:29 Review of Systems Sugical H&P ROS: Negative: Constitution, Cardiovascular, Respiratory, Neurological, Psychiatric, Hem-Onc, Allergic/Immunologic, Gastrointestinal, Genitourinary, Musculoskeletal, Integumentary, Endocrine and Eyes/Ears/Nose/Throat Exam Surgical H&P Exam: Normal: HEENT, Normal: Heart, Normal: Lungs, Normal: Extremities, Normal: Abdomen, Normal: Skin and Normal: Neurological Plan Diagnosis/Plan: Unchanged I have reviewed the history and physical and performed a pertinent physical examination on my patient. No changes have occurred unless specified.
[2021-10-20 12:27] LABS: COVID-19 Test Negative (Negative); IDNOW Serial# 55D5AD1C
--- NOTE | 2021-10-21 09:04 | P.CONAN_ITS ---
HPI - Anesthesia Eval Consult details Narrative: 55yo F for Gastrectomy Sleeve,EGD,poss diaphragmatic hernia,poss ventral hernia,poss open, PMFSH Active Problems Active Problems: All Active Problems (Updated 10/14/21 @ 00:01 by Octavio Muñiz) COVID (Acute) Constipation (Acute) Major depressive disorder, recurrent, moderate (Acute) Vitamin D deficiency (Acute) Asthma (Acute) Migraine (Acute) Hypothyroid (Acute) GERD (gastroesophageal reflux disease) (Acute) Depression (Acute) Anxiety (Acute) Morbid obesity (Acute) Acute hypoxemic respiratory failure due to COVID-19 (Acute) Hypoxia (Acute) Dehydration (Acute) Past Medical History Medical History Anxiety Asthma Depression GERD (gastroesophageal reflux disease) Hypothyroid Migraine Morbid obesity Obesity Family History Family History Mother H/O heart artery stent Arthritis Hypertension Hypercholesteremia Skin cancer of face Father Diabetes Hypertension Parkinson disease Sister Hypertension Hypercholesteremia Son GERD (gastroesophageal reflux disease) Surgical History Surgical History History of mastopexy Social History Social History (Updated 10/16/21 @ 16:40 by Елена Hudson RN) Household Members: Family Housing: House Are you a primary rn coronary care unit to a significant other at home: No Do you presently have visiting nurse or other home services: No Alcohol intake: never Patient Tobacco Use Status: Never used Tobacco service: No Current occupational status: employed Meds Allergies Allergy/AdvReac Type Severity Reaction Status Date / Time oseltamivir [From Tamiflu] Allergy Severe Hives Verified 10/16/21 16:29 Penicillins [PENICILLINS] Allergy Severe HIVES Verified 10/16/21 16:29 dexamethasone AdvReac Severe Shakiness Verified 10/16/21 16:29 Home Medications Medication Instructions Recorded Confirmed Last Taken Type acetaminophen 500 mg tablet 500 mg PO Q6H PRN 06/07/20 10/15/21 06/04/20 History albuterol sulfate 90 mcg/actuation 1 - 2 puff PO Q4-6H PRN 06/07/20 10/16/21 06/07/20 History aerosol inhaler levothyroxine 50 mcg tablet 50 mcg PO Q OTHER DAY 06/07/20 10/16/21 06/06/20 History hydroxyzine HCl 25 mg tablet 25 mg PO BID PRN 07/06/21 10/15/21 Unknown History levothyroxine 75 mcg tablet 75 mcg PO Q OTHER DAY 10/16/21 10/16/21 Unknown History (Synthroid) Exam Exam Date and Time: October 21, 2021 0904 Height,Weight and Vital Signs: Height 5 ft 2 in Weight 107.501 kg Pertinent Lab Results Pertinent Lab Results: Laboratory Tests 10/16/21 10/16/21 10/16/21 07:50 07:50 07:50 WBC 9.5 RBC 5.27 Hgb 13.5 Hct 42.1 MCV 79.9 L MCH 25.6 L MCHC 32.1 RDW 14.6 Plt Count 301 MPV 10.8 Immature Gran % (Auto) 0.1 Neut % (Auto) 40.9 L Lymph % (Auto) 49.5 H [place] % (Auto) 7.9 Eos % (Auto) 1.3 Baso % (Auto) 0.3 Lymph # (Auto) 4.7 [place] # (Auto) 0.8 Eos # (Auto) 0.1 Baso # (Auto) 0.0 Abs Immat Gran (auto) 0.01 Absolute Neuts (auto) 3.9 Absolute Nucleated RBC 0.000 Nucleated RBC % (auto) 0.0 PT 11.1 INR 1.0 APTT 28.1 Sodium 141 Potassium 3.7 Chloride 105 Carbon Dioxide 26 Anion Gap 14 BUN 23 H Creatinine 0.87 Estim Creat Clear Calc TNP Estimated GFR > 60 Random Glucose 90 Estimat Average Glucose Hemoglobin A1c % Insulin Level 16 Calcium 9.4 D Total Bilirubin 0.4 AST 10 ALT 15 Alkaline Phosphatase 48 C-Reactive Protein 0.42 Total Protein 6.6 Albumin 3.9 Triglycerides 106 Cholesterol 181 LDL Cholesterol, Calc 107 HDL Cholesterol 53 TSH 3.88 COVID-19 ([facility]Y) COVID-19 Clin Com Blood Type Antibody Screen 10/16/21 10/16/21 10/20/21 07:50 07:50 12:00 WBC RBC Hgb Hct MCV MCH MCHC RDW Plt Count MPV Immature Gran % (Auto) Neut % (Auto) Lymph % (Auto) [place] % (Auto) Eos % (Auto) Baso % (Auto) Lymph # (Auto) [place] # (Auto) Eos # (Auto) Baso # (Auto) Abs Immat Gran (auto) Absolute Neuts (auto) Absolute Nucleated RBC Nucleated RBC % (auto) PT INR APTT Sodium Potassium Chloride Carbon Dioxide Anion Gap BUN Creatinine Estim Creat Clear Calc Estimated GFR Random Glucose Estimat Average Glucose 117 Hemoglobin A1c % 5.7 Insulin Level Calcium Total Bilirubin AST ALT Alkaline Phosphatase C-Reactive Protein Total Protein Albumin Triglycerides Cholesterol LDL Cholesterol, Calc HDL Cholesterol TSH COVID-19 ([facility]INDY) Negative COVID-19 Clin Com See Note Blood Type AB Positive Antibody Screen NEGATIVE Narrative Narrative: EKG 06/2021 Vent. Rate : 060 BPM ? ? Atrial Rate : 060 BPM ?? P-R Int : 138 ms? QRS Dur : 094 ms ? ? QT Int : 426 ms ? ? ? P-R-T Axes : 060 051 065 degrees ?? QTc Int : 426 ms ? Normal sinus rhythm Normal ECG When compared with ECG of 07-JUN-2020 21:15, No significant change was found Assessment and Plan Assessment Anesthesia Assessment: Chart Reviewed
== END 2021-10-22 00:01 | disposition home or self-care (01) ==
LOC: HO.PAT
PROVIDERS: Physician Assistant Surgical; PCP Internal Medicine; Visit Provider Surgery
DX: Z01.818 Encounter for other preprocedural examination (principal); Z20.822 Contact with and (suspected) exposure to COVID-19; E66.01 Morbid (severe) obesity due to excess calories; E03.9 Hypothyroidism, unspecified; K21.9 Gastro-esophageal reflux disease without esophagitis
CPT/HCPCS: 36415; 80053; 80061; 83036; 83525; 84443; 85025; 85610; 85730; 86140; 86850; 86900; 86901; 87635

== ENCOUNTER 2023-12-05 12:16 | Emergency (ER) | payer OTHER, SELFPAY ==
[2023-12-05 12:42] VITALS: BP 120/48; PULSE 69; RESP 17; TEMP 36.6; O2SAT 96; BMI 43.2
--- NOTE | 2023-12-05 12:42 | ED_ITS ---
HPI - General Adult General Chief complaint: Abdominal Pain Stated complaint: abd pain Source: patient Mode of arrival: ambulatory Limitations: no limitations History of Present Illness ED Provider: Jud Noyola PA-C HPI narrative: Patient is a 58 year old assigned female at with a history of anxiety, depression, migraines, MDD, constipation, and GERD presenting to the emergency department today with diarrhea and concerns fo dehydration. Patient states that she has had a lot of diarrhea over the last few days and she is concerned that she is dehydrated. Patient denies any dizziness, lightheadedness, nausea, vomiting, fever, chills, blurry vision, double vision, loss of vision, chest pain, difficulty breathing, shortness of breath, back pain, night sweats, pain with urination, increased urinary frequency, increased urinary urgency, blood in her urine or stool, syncope or a near syncopal episode, recent trauma or falls, bowel incontinence, bladder incontinence, or any other complaints at this time. Onset (ago): day(s) Relieving factors: none Exacerbating factors: none Associated symptoms: denies other symptoms Treatments prior to arrival: none Related Data Home Medications ?Medication ?Instructions ?Recorded ?Confirmed acetaminophen 500 mg tablet 500 mg PO Q6H PRN pain 06/07/20 10/15/21 albuterol sulfate 90 mcg/actuation 1 - 2 puff PO Q4-6H PRN Dyspnea 06/07/20 10/16/21 aerosol inhaler levothyroxine 50 mcg tablet 50 mcg PO Q OTHER DAY 06/07/20 10/16/21 hydroxyzine HCl 25 mg tablet 25 mg PO BID PRN 07/06/21 10/15/21 levothyroxine 75 mcg tablet 75 mcg PO Q OTHER DAY 10/16/21 10/16/21 (Synthroid) Previous Rx's ?Medication ?Instructions ?Recorded omeprazole 20 mg capsule,delayed 20 mg PO BIDWMEAL #60 caps 06/11/20 release acetaminophen 325 mg capsule 650 mg (2 x 325 mg) PO Q6H PRN 09/27/20 pain #20 caps cholecalciferol (vitamin D3) 125 125 mcg PO DAILY #30 caps 07/10/21 mcg (5,000 unit) capsule mecobalamin (vitamin B12) 1,000 1,000 mcg sublingual DAILY #30 tabs 07/10/21 mcg disintegrating tablet,sublingual docusate sodium 100 mg capsule 100 mg PO DAILY #30 caps 08/10/21 (Colace) levothyroxine 75 mcg capsule 75 mcg PO DAILY #30 caps 08/29/21 ondansetron HCl 4 mg tablet 4 mg PO Q12H nausea and vomiting 10/15/21 #20 tabs pantoprazole 40 mg tablet,delayed 40 mg PO DAILY #30 tabs 10/15/21 release polyethylene glycol 3350 17 gram 17 g PO DAILY #14 ea 10/15/21 oral powder packet (Miralax) sucralfate 100 mg/mL oral 10 ml PO BID #400 mL 10/15/21 suspension Allergies Allergy/AdvReac Type Severity Reaction Status Date / Time oseltamivir [From Tamiflu] Allergy Severe Hives Verified 12/05/23 12:45 Penicillins [PENICILLINS] Allergy Severe HIVES Verified 12/05/23 12:45 dexamethasone AdvReac Severe Shakiness Verified 12/05/23 12:45 Review of Systems 2 Constitutional: Constitutional: Reports no additional constitutional complaints, Denies chills, Denies fever(s) and Denies night sweats Eyes: Eyes: Reports no additional eye complaints, Denies blurry vision, Denies change in vision, Denies diplopia, Denies eye discharge, Denies loss of vision and Denies eye pain ENT: Denies dizziness Cardiovascular: Cardiovascular: Reports no additional cardiovascular complaints, Denies chest pain, Denies lightheadedness, Denies Loss of Consciousness and Denies dyspnea Respiratory: Respiratory: Reports no additional respiratory complaints and Denies dyspnea Gastrointestinal: Gastrointestinal: Reports no additional gastrointestinal complaints, Reports abdominal pain, Denies melena, Denies hematochezia, Reports change in bowel habits, Reports change in stool character and Reports diarrhea Genitourinary: Genitourinary: Denies hematuria, Denies urinary frequency, Denies dysuria, Denies urinary incontinence, Denies urinary hesitancy and Denies urinary urgency Musculoskeletal: Musculoskeletal: Reports no additional musculoskeletal complaints, Denies numbness and Denies tingling Neurologic: Denies dizziness, Denies loss of vision, Denies numbness and Denies tingling Psychiatric: Psychiatric: Reports no additional psychiatric complaints Endocrine: Endocrine: Reports no additional endocrine complaints Hematologic/Lymphatic: Hematologic/Lymphatic: Reports no additional hematologic/lymphatic complaints Allergic/Immunologic: Allergic/Immunologic: Reports no additional allergic/immunologic complaints PMFSH Past Medical History Attestation statement: The following information was validated with the patient. Source: old records reviewed and nursing notes reviewed Medical History Asthma Morbid obesity Obesity Migraine Anxiety Depression GERD (gastroesophageal reflux disease) Hypothyroid Surgical History History of mastopexy Family History Family History Mother H/O heart artery stent Arthritis Hypertension Hypercholesteremia Skin cancer of face Father Diabetes Hypertension Parkinson disease Sister Hypertension Hypercholesteremia Son GERD (gastroesophageal reflux disease) Social History Social History Household Members: Family Housing: House Are you a primary care services manager to a significant other at home: No Do you presently have visiting nurse or other home services: No Alcohol intake: never Comment: iso unit Patient Tobacco Use Status: Never used Tobacco Advance Directives: No Do you have a plan to hurt others: No Plan service: No Current occupational status: employed Physical Exam ED Vital Signs: Vital Signs - 24 hr 12/05/23 12:42 Temperature 97.9 F Pulse Rate 69 Respiratory Rate 17 Blood Pressure 120/48 L Pulse Oximetry 96 BMI result Body Mass Index 43.2 Const General: cooperative, no acute distress, alert and awake Nutritional Appearance: well nourished Orientation/consciousness: patient oriented x3 Limitations: no limitations [facility] Head: Yes normal to inspection and Yes atraumatic Ears: hearing grossly normal bilaterally and external ears normal General nose exam: Normal external nose present, no nasal discharge noted and no epistaxis Face and sinus: Yes normal facial exam, No abrasion and No laceration Mouth: Normal oral and palatal mucosa present, no drooling and no muffled voice Eyes General: appearance normal, both eyes and all related structures Periorbital: periorbital findings normal Eyelids: Yes eyelids normal Conjunctivae: conjunctivae normal Pupils: Equal, round and reactive pupils present EOM: EOMs intact bilaterally Neck Neck: Yes normal visual inspection, Yes full ROM and Yes no lymphadenopathy Chest Chest palpation & inspection: normal inspection of the chest Resp Effort & Inspection: normal respiratory effort and able to speak in complete sentences GI Inspection: Yes normal to inspection Neuro General: patient oriented x3 and moves all extremities Cranial nerves: Yes Equal, round and reactive pupils present Cognition (Neuro): normal cognition Extrem General: Yes normal to inspection, Yes full ROM and Yes capillary refill normal Psych Appearance: grossly normal Mental Status: mental status grossly normal Affect: normal affect Attitude: cooperative Thought process: Normal thought process present Thought content: Normal thought content present Insight: Good insight present (Psych) Course Course Course Narrative: RME performed by Jud Noyola PA-C. Patient is a 58 year old assigned female at presenting to the emergency department with abdominal pain and concerns she is dehydrated. Patient states she was having constipation, took things for that, but has been having diarrhea. Detailed physical exam and review of systems are deferred to the tutoring clinician. Labs ordered. Patient placed back in the waiting room pending room availability and results. Medical Decision Making Medical Decision Making MDM Narrative: Patient is a 58 year old assigned female at with a history of anxiety, depression, migraines, MDD, constipation, and GERD presenting to the emergency department today with abdominal pain, diarrhea, and concerns of dehydration. Patient's limited physical exam performed in triage was unremarkable. Patient's blood work was unremarkable. Patient left the department without completing treatment. Patient left the department before myself or any of the other emergency department clinicians could explain to or review with the patient; physical exam findings, test results, need or lack there of for additional testing, need or lack there of for a procedure to be performed, need or lack there of for hospital admission / transfer, need or lack there of for prescription medication, treatment options, or a treatment plan. Differential Diagnosis Differential Diagnoses: The differential diagnosis associated with the presentation includes Diarrhea Colitis Admission/Observation Consideration of admission/observation: Escalation of care including admission/observation considered Patient would have been admitted to the hospital had she completed her work up and it had any findings where hospital admission was appropriate, her clinical presentation warranted hospital admission, had myself or any other emergency purchasing department clerk had the ability to discuss need or lack there of for hospital admission, and the patient hadn't left the department without completing treatment. Lab Data [facility] Lab Attestation statement: I reviewed the patient's lab results. My interpretation of these results are in the [facility] Rationale portion of this note. 12/05/23 12:55 12/05/23 12:55 Labs: Lab Results 12/05/23 Range/Units 12:55 WBC 10.1 (4.8-10.8) X10*3/uL RBC 5.23 (4.20-5.50) X10*6/uL Hgb 14.1 (12.0-16.0) g/dl Hct 42.7 (37.0-47.0) % MCV 81.6 (80.0-98.0) fL MCH 27.0 (27.0-33.0) pg MCHC 33.0 (31.0-35.0) g/dl RDW 15.2 (11.0-16.0) % Plt Count 327 (160-400) X10*3/uL MPV 10.8 (9.4-12.3) fL Immature Gran % (Auto) 0.3 (0.0-0.4) % Neut % (Auto) 64.2 (45-73) % Lymph % (Auto) 26.6 (20-40) % [place] % (Auto) 6.0 (2-11) % Eos % (Auto) 2.3 (0-4) % Baso % (Auto) 0.6 (0-2) % Lymph # (Auto) 2.7 (1.2-4.9) X10*3/uL [place] # (Auto) 0.6 (0.1-1.2) X10*3/uL Eos # (Auto) 0.2 (0.0-0.4) X10*3/uL Baso # (Auto) 0.1 (0.0-0.2) X10*3/uL Abs Immat Gran (auto) 0.03 (0.00-0.03) X10*3/uL Absolute Neuts (auto) 6.5 (2.0-8.3) x10*3/uL Absolute Nucleated RBC 0.000 (0.0-0.012) X10*3/uL Nucleated RBC % (auto) 0.0 (0.0-0.2) /100WBC Sodium 144 (135-145) mmol/L Potassium 3.7 (3.3-5.1) mmol/L Chloride 113 H (96-108) mmol/L Carbon Dioxide 23 (22-29) mmol/L Anion Gap 12 (12-20) BUN 9 (9-16) mg/dL Creatinine 1.02 (0.5-1.4) mg/dL Estim Creat Clear Calc 70.0 Estimated GFR 56 Random Glucose 112 (60-115) mg/dL Calcium 8.6 D (8.4-10.2) mg/dL Magnesium 2.2 (1.6-2.6) mg/dL Total Bilirubin 0.2 (0.0-1.0) mg/dL AST 14 (5-31) U/L ALT 33 H (0-31) U/L Alkaline Phosphatase 41 (39-117) U/L Total Protein 6.2 L (6.5-8.0) g/dL Albumin 3.6 (3.5-5.0) g/dL Influenza Type A (PCR) NEGATIVE (Negative) Influenza Type B (PCR) NEGATIVE (Negative) RSV RNA Qual (PCR) NEGATIVE (Negative) SARS-CoV-2 RNA (RT-PCR) NEGATIVE (Negative) Discharge Plan Discharge Clinical Impression: Diarrhea Patient Disposition: Left W/O Completing Treatment Prescriptions: No Action cholecalciferol (vitamin D3) 125 mcg (5,000 unit) capsule 125 mcg PO DAILY Qty: 30 2RF mecobalamin (vitamin B12) 1,000 mcg tablet,disintegrating 1,000 mcg sublingual DAILY Qty: 30 2RF Rx Instructions: place tablet under tongue and allow to dissolve for at least30 secs before swallowing levothyroxine 75 mcg capsule 75 mcg PO DAILY Qty: 30 2RF acetaminophen 500 mg tablet 500 mg PO Q6H PRN (Reason: pain) levothyroxine 50 mcg tablet 50 mcg PO Q OTHER DAY albuterol sulfate 90 mcg/actuation HFA aerosol inhaler 1 - 2 puff PO Q4-6H PRN (Reason: Dyspnea) omeprazole 20 mg capsule,delayed release(DR/EC) 20 mg PO BIDWMEAL Qty: 60 0RF acetaminophen 325 mg capsule 650 mg PO Q6H PRN (Reason: pain) Qty: 20 0RF levothyroxine [Synthroid] 75 mcg tablet 75 mcg PO Q OTHER DAY Rx Instructions: Alternate every other day with the 50mcg dose hydroxyzine HCl 25 mg tablet 25 mg PO BID PRN docusate sodium [Colace] 100 mg capsule 100 mg PO DAILY Qty: 30 2RF pantoprazole 40 mg tablet,delayed release (DR/EC) 40 mg PO DAILY Qty: 30 2RF sucralfate 100 mg/mL suspension 10 ml PO BID Qty: 400 2RF ondansetron HCl 4 mg tablet 4 mg PO Q12H Qty: 20 0RF polyethylene glycol 3350 [Miralax] 17 gram powder in packet 17 g PO DAILY Qty: 14 0RF Rx Instructions: Mix each packet with 8oz of water and do 7 packets on 10/20/21 and another 7 packets on 10/21/21 Discharge Date/Time: 12/05/23 16:55
[2023-12-05 12:59] LABS: MANUAL DIFF FLAG NO
[2023-12-05 13:00] LABS: Basophils Absolute Auto 0.1 X10*3/uL (0.0-0.2); Basophils Percent Auto 0.6 % (0-2); Eosinophils Absolute Auto 0.2 X10*3/uL (0.0-0.4); Eosinophils Percent Auto 2.3 % (0-4); Hematocrit 42.7 % (37.0-47.0); Hemoglobin 14.1 g/dl (12.0-16.0); Imm Gran Abs Auto 0.03 X10*3/uL (0.00-0.03); Imm Gran Pct Auto 0.3 % (0.0-0.4); Lymphocytes Absolute Auto 2.7 X10*3/uL (1.2-4.9); Lymphocytes Percent Auto 26.6 % (20-40); Mean Corpuscular Volume 81.6 fL (80.0-98.0); Mean Platelet Volume 10.8 fL (9.4-12.3); Monocytes Absolute Auto 0.6 X10*3/uL (0.1-1.2); Neutrophils Absolute Auto 6.5 x10*3/uL (2.0-8.3); Neutrophils Percent Auto 64.2 % (45-73); Platelet Count 327 X10*3/uL (160-400); Red Blood Count 5.23 X10*6/uL (4.20-5.50); Red Cell Distribution Width 15.2 % (11.0-16.0); White Blood Count 10.1 X10*3/uL (4.8-10.8)
[2023-12-05 13:14] LABS: Alanine Aminotransferase 33 U/L (0-31); Albumin Level 3.6 g/dL (3.5-5.0); Alkaline Phosphatase 41 U/L (39-117); Anion Gap 12 (12-20); Aspartate Amino Transferase 14 U/L (5-31); Bilirubin Total 0.2 mg/dL (0.0-1.0); Blood Urea Nitrogen 9 mg/dL (9-16); Calcium 8.6 mg/dL (8.4-10.2); Carbon Dioxide 23 mmol/L (22-29); Chloride 113 mmol/L (96-108); Estimated Glomerular Filt Rate 56; Glucose Random 112 mg/dL (60-115); Magnesium 2.2 mg/dL (1.6-2.6); Potassium 3.7 mmol/L (3.3-5.1); Sodium 144 mmol/L (135-145); Total Protein 6.2 g/dL (6.5-8.0)
[2023-12-05 13:38] LABS: Influenza A PCR NEGATIVE (Negative); Influenza B PCR NEGATIVE (Negative); Resp Syncy Virus RNA Qual PCR NEGATIVE (Negative); SARS COV2 PCR INHOUSE NEGATIVE (Negative)
== END 2023-12-05 16:55 | disposition left against medical advice (07) ==
PROVIDERS: Physician Assistant Medical; Emergency Provider Emergency Medicine; PCP Internal Medicine
DX: R19.7 Diarrhea, unspecified (principal); R10.9 Unspecified abdominal pain; R25.2 Cramp and spasm; Z79.899 Other long term (current) drug therapy; Z03.818 Encounter for observation for suspected exposure to other biological agents ruled out
CPT/HCPCS: 0241U; 80053; 83735; 85025; 99281; 99283